=== PATIENT | male | born 1960 | race Caucasian/White ===

== ENCOUNTER 2019-04-01 05:22 | Emergency (ER) | payer OTHER ==
[2019-04-01] MEDS ORDERED: FLEET ENEMA ADULT PR ONE (06:02)
[2019-04-01 07:22] LABS: Absolute Monocytes 0.9 K/uL (0.1-1.3); Absolute Neutrophil 10.5 K/uL (1.8-8.0); Basophils % 0.9 % (0-1.3); Eosinophils % 1.4 % (0-4.4); Hematocrit 49.7 % (39.6-49.0); Lymphocytes % 14.8 % (15.3-44.8); MPV 8.6 fL (7.6-11.3); Monocytes % 6.8 % (3.3-12.3); RBC Red Blood Cell Count 5.29 M/uL (4.33-5.43)
[2019-04-01 07:31] LABS: Albumin 3.7 g/dL (3.4-5.0); Bilirubin Total 0.7 mg/dL (0.2-1.0); Potassium 4.2 mmol/L (3.5-5.1); Protein, Total 7.9 g/dL (6.4-8.2)
--- NOTE | 2019-04-01 08:27 | RAD REPORT ---
EXAM DESCRIPTION: CTAbdomen Pelvis W Contrast - 04/01/2019 8:11 am CLINICAL HISTORY: Abdominal pain. obstruction COMPARISON: No comparisons TECHNIQUE: Biphasic CT imaging of the abdomen and pelvis was performed with 100 ml non-ionic IV cont rast. All CT scans are performed using dose optimization technique as appropriate and may include automated exposure control or mA/KV adjustment according to patient size. FINDINGS: The lung bases are clear. The liver demonstrates mild fatty infiltration. The spleen, pancreas, adrenal glands and kidneys are within normal limits. No bowel obstruction, free air, free fluid or abscess. Mild fecal retention in the colon. Asymmetric wall thickening of the rectum is seen in the pelvis with a left lateral rectal wall measuring up to 9 mm (image 79/97). The appendix is not identified as a discrete structure, however, no secondary find ings of appendicitis are identified. No evidence of significant lymphadenopathy. No suspicious bony findings. IMPRESSION: Mild fecal retention in the colon. Asymmetric wall thickening involving a segment of the rectum in the pelvis is nonspecific but can be seen in malignancy. Followup colonoscopy would be recommended. Fatty liver.
--- NOTE | 2019-04-01 09:32 | ER ---
Nurse's Notes [facility] Name: Padilla Maldonado Jr Age: 58 yrs Sex: Male : 1960 Arrival Date: 04/01/2019 Time: 05:23 Bed 18 Private MD: Diagnosis: Constipation, unspecified Presentation: 04/01 05:25 Presenting complaint: EMS states: "He reported to use that he is constipated. He says jd3 he hasn't had a bowel movement in 5-6 days. he took magnesium citrate last night at 1900, but still no bowel movent.". Transition of care: patient was not received from another setting of care. Onset of symptoms was March 26, 2019. Risk Assessment: Do you want to hurt yourself or someone else? Patient reports no desire to harm self or others. Initial Sepsis Screen: Does the patient meet any 2 criteria? No. Patient's initial sepsis screen is negative. Does the patient have a suspected source of infection? No. Patient's initial sepsis screen is negative. Care prior to arrival: None. 05:25 Method Of Arrival: EMS: [facility] jd3 05:25 Acuity: LONA 4 jd3 Historical: - Allergies: 05:34 [place]; jd3 05:34 PENICILLINS; jd3 - Home Meds: 05:34 metformin 500 mg Oral tab [Active]; ranitidine HCl 150 mg Oral cap [Active]; jd3 montelukast 10 mg oral tab [Active]; lisinopril 10 mg Oral tab [Active]; prednisone 5 mg Oral tab [Active]; - PMHx: 05:34 brain injury; Diabetes - NIDDM; COPD; Hypertension; High Cholesterol; GERD; jd3 Osteoporosis; - PSHx: 05:34 abdominal sx; left hand; jd3 - Immunization history:: Adult Immunizations up to date. - Social history:: Smoking status: Patient uses tobacco products, smokes one-half pack cigarettes per day. - Ebola Screening: : Patient negative for fever greater than or equal to 101.5 degrees Fahrenheit, and additional compatible Ebola Virus Disease symptoms. Screenin:39 Abuse screen: Denies threats or abuse. Nutritional screening: No deficits noted. jd3 Tuberculosis screening: No symptoms or risk factors identified. Fall Risk Ambulatory Aid- None/Bed Rest/Nurse Assist (0 pts). Gait- Normal/Bed Rest/Wheelchair (0 pts) Mental Status- Oriented to own ability (0 pts). Total Deutsch Fall Scale indicates No Risk (0-24 pts). Assessment: 05:36 General: Appears in no apparent distress. uncomfortable, Behavior is calm, cooperative, jd3 appropriate for age. Pain: Complains of pain in back Quality of pain is described as aching. Neuro: Level of Consciousness is awake, alert, obeys commands, Oriented to person, place, time, situation, Appropriate for age. Cardiovascular: Capillary refill < 3 seconds Patient's skin is warm and dry. Respiratory: Airway is patent Respiratory effort is even, unlabored, Respiratory pattern is regular, symmetrical. GI: Abdomen is round Abd is soft and non tender X 4 quads. Reports constipation. : No signs and/or symptoms were reported regarding the genitourinary system. EENT: No signs and/or symptoms were reported regarding the EENT system. Derm: Skin is intact, Skin is dry, Skin is normal, Skin temperature is warm. Musculoskeletal: Circulation, motion, and sensation intact. Range of motion: intact in all extremities. 07:00 General: Appears in no apparent distress. comfortable, Behavior is calm, cooperative. rb1 Pain: Denies pain. Neuro: Level of Consciousness is awake, alert, obeys commands, Oriented to person, place, time, situation. Respiratory: Airway is patent Respiratory effort is even, unlabored, Respiratory pattern is regular, symmetrical. GI: Reports constipation. : No signs and/or symptoms were reported regarding the genitourinary system. Derm: Skin is pink, warm \\T\\ dry. 08:00 Reassessment: Patient appears in no apparent distress at this time. No changes from rb1 previously documented assessment. 08:05 Reassessment: Pt. went to CT. rb1 09:23 Reassessment: Patient appears in no apparent distress at this time. Patient and/or em family updated on plan of care and expected duration. Pain level reassessed. Patient is alert, oriented x 3, equal unlabored respirations, skin warm/dry/pink. no BM. 09:54 Reassessment: pt upset about diagnosis, states "doctors here don't know what they are em doing, they are going to find me on the street. I know doctors who saved my life and they did a colonoscopy and saved my life. I spent all this money and you telling me there is nothing wrong with me." pt agreed to sign discharge papers, will be discharged and take bus home. Vital Signs: 05:34 BP 154 / 94; Pulse 84; Resp 18 S; Temp 98.5(O); Pulse Ox 95% on R/A; Weight 86.18 kg jd3 (R); Height 5 ft. 6 in. (167.64 cm) (R); Pain 0/10; 07:00 BP 130 / 77; Pulse 79; Resp 17; Temp 98.0(O); Pulse Ox 95% on R/A; Pain 0/10; rb1 08:00 BP 129 / 80; Pulse 75; Resp 18; Temp 98.1(O); Pulse Ox 96% on R/A; Pain 0/10; rb1 09:32 BP 118 / 81; Pulse 71; Resp 16; Pulse Ox 96% on R/A; em 05:34 Body Mass Index 30.67 (86.18 kg, 167.64 cm) jd3 ED Course: 05:23 Patient arrived in ED. jd3 05:28 Triage completed. jd3 05:30 Kendall Montana MD is Attending Physician. ps1 05:35 Arm band placed on. jd3 05:39 Patient has correct armband on for positive identification. Bed in low position. Call j light in reach. Side rails up X 1. 05:52 Zack Hodges, RN is Primary Nurse. jd3 06:48 Abdomen Acute Series XRAY In Process Unspecified. EDMS 06:48 Radiology exam delayed due to PT IN RESTROOM. Patient moved to radiology via wheelchair.kw 06:48 X-ray completed. Patient tolerated procedure well. Patient moved back from radiology. kw 07:06 Inserted saline lock: 20 gauge in right antecubital area, using aseptic technique. oe Blood collected. 07:16 Radiology exam delayed due to lab results not completed at this time. (BUN/Creatinine). mw3 08:11 CT completed. Patient tolerated procedure well. Patient moved back from CT. mw3 08:13 CT Abd/Pelvis - W/Contrast In Process Unspecified. EDMS 08:56 Attending Physician role handed off by Kendall Montana MD kdr 08:56 Carlos Henry MD is Attending Physician. kdr 09:00 Report given to JR Saravia. rb1 09:54 No provider procedures requiring assistance completed. IV discontinued, intact, em bleeding controlled, No redness/swelling at site. Pressure dressing applied. Administered Medications: 05:53 Drug: Fleet Enema 133 ml Route: AL; jd3 06:57 Follow up: Response: No change in condition; ]provider notified jd3 Intake: Outcome: 09:32 Discharge ordered by MD. kdr 09:54 Discharged to home ambulatory. em 09:54 Condition: good 09:54 Discharge instructions given to patient, Instructed on discharge instructions, follow up and referral plans. medication usage, Demonstrated understanding of instructions, follow-up care, medications, Prescriptions given X 1. 09:58 Patient left the ED. em Signatures: Dispatcher [employer] EDMS Carlos Henry MD MD kdr Munoz, Edgar, LVN BRUSHER MACHINE em Lynn Paige Rebecca, RN RN rb1 Wai Levine Jonathon RN RN jd3 Kendall Montana MD MD [facility] Tara Parekh mw3 Corrections: (The following items were deleted from the chart) 06:57 06:55 Response: No change in condition jd3 jxavier
--- NOTE | 2019-04-01 09:32 | EDPHYS ---
Physician Documentation [facility] Name: Padilla Maldonado Jr Age: 58 yrs Sex: Male : 1960 Arrival Date: 04/01/2019 Time: 05:23 Bed 18 Private MD: ED Physician Carlos Henry HPI: 04/01 05:58 This 58 yrs old Male presents to ER via EMS with complaints of constipation. ps1 05:58 patient states that he has been constipated for last 5 days. 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 No abdominal pain but cramping. From out of town and homeless. Drove from [place] and now in [place]. No reported pain medications. . Historical: - Allergies: 05:34 [place]; jd3 05:34 PENICILLINS; jd3 - Home Meds: 05:34 metformin 500 mg Oral tab [Active]; ranitidine HCl 150 mg Oral cap [Active]; jd3 montelukast 10 mg oral tab [Active]; lisinopril 10 mg Oral tab [Active]; prednisone 5 mg Oral tab [Active]; - PMHx: 05:34 brain injury; Diabetes - NIDDM; COPD; Hypertension; High Cholesterol; GERD; jd3 Osteoporosis; - PSHx: 05:34 abdominal sx; left hand; jd3 - Immunization history:: Adult Immunizations up to date. - Social history:: Smoking status: Patient uses tobacco products, smokes one-half pack cigarettes per day. - Ebola Screening: : Patient negative for fever greater than or equal to 101.5 degrees Fahrenheit, and additional compatible Ebola Virus Disease symptoms. ROS: 05:58 Constitutional: Negative for fever, chills, and weight loss, Eyes: Negative for injury, ps1 pain, redness, and discharge, ENT: Negative for injury, pain, and discharge, Cardiovascular: Negative for chest pain, palpitations, and edema, Respiratory: Negative for shortness of breath, cough, wheezing, and pleuritic chest pain, Back: Negative for injury and pain, MS/Extremity: Negative for injury and deformity, Skin: Negative for injury, rash, and discoloration. 05:58 Abdomen/GI: Positive for constipation. Exam: 05:58 Constitutional: This is a well developed, well nourished patient who is awake, alert, ps1 and in no acute distress. Head/Face: Normocephalic, atraumatic. Eyes: Pupils equal round and reactive to light, extra-ocular motions intact. Lids and lashes normal. Conjunctiva and sclera are non-icteric and not injected. Chest/axilla: Normal chest wall appearance and motion. Nontender with no deformity. No lesions are appreciated. Cardiovascular: Regular rate and rhythm. No gallops, murmurs, or rubs. Normal PMI, no JVD. No pulse deficits. Respiratory: Lungs have equal breath sounds bilaterally, clear to auscultation and percussion. No rales, rhonchi or wheezes noted. No increased work of breathing, no retractions or nasal flaring. Abdomen/GI: Soft, non-tender, with normal bowel sounds. No distension or tympany. No guarding or rebound. No evidence of tenderness throughout. MS/ Extremity: Pulses equal, no cyanosis. Neurovascular intact. Full, normal range of motion. Neuro: Awake and alert, GCS 15, oriented to person, place, time, and situation. Cranial nerves II-XII grossly intact. Sensory grossly intact. Psych: Awake, alert, with orientation to person, place and time. Behavior, mood, and affect are within normal limits. Vital Signs: 05:34 BP 154 / 94; Pulse 84; Resp 18 S; Temp 98.5(O); Pulse Ox 95% on R/A; Weight 86.18 kg jd3 (R); Height 5 ft. 6 in. (167.64 cm) (R); Pain 0/10; 07:00 BP 130 / 77; Pulse 79; Resp 17; Temp 98.0(O); Pulse Ox 95% on R/A; Pain 0/10; rb1 08:00 BP 129 / 80; Pulse 75; Resp 18; Temp 98.1(O); Pulse Ox 96% on R/A; Pain 0/10; rb1 09:32 BP 118 / 81; Pulse 71; Resp 16; Pulse Ox 96% on R/A; em 05:34 Body Mass Index 30.67 (86.18 kg, 167.64 cm) jd3 MDM: 06:12 Patient medically screened. ps1 09:39 Data reviewed: vital signs, nurses notes, lab test result(s), radiologic studies. kdr Counseling: I had a detailed discussion with the patient and/or guardian regarding: the historical points, exam findings, and any diagnostic results supporting the discharge/admit diagnosis, lab results, radiology results. Special discussion: Based on the patient's Hx, exam, and Dx evaluation, there is no indication for emergent surgery or inpatient Tx. It is understood by the patient/guardian that if the Sx's persist or worsen they need to return immediately for re-evaluation. I discussed with the patient/guardian in detail that at this point there is no indication for admission to the hospital. It is understood, however, that if the symptoms persist or worsen the patient needs to return immediately for re-evaluation. 04/01 06:48 Order name: CBC with Diff; [facility] 08[facility] 04/01 06:48 Order name: CMP; Complete Time: 08:52 [facility] 04/01 05:50 Order name: Abdomen Acute Series XRAY ps1 04/01 06:48 Order name: Lactate; Complete Time: 08:52 [facility] 04/01 06:48 Order name: CT Abd/Pelvis - W/Contrast; Complete Time: 08:52 [facility] 04/01 06:48 Order name: Lipase; Complete Time: 08:52 [facility] 04/01 06:55 Order name: IV; Complete Time: 08:09 j Administered Medications: 05:53 Drug: Fleet Enema 133 ml Route: [place]; jd3 06:57 Follow up: Response: No change in condition; ]provider notified jd3 Disposition: 04/01/19 09:32 Discharged to Home. Impression: Constipation, unspecified. - Condition is Stable. - Discharge Instructions: Constipation, Adult, [id number]. - Prescriptions for Miralax 17 gram/dose Oral - take 1 packet by ORAL route once daily dilute powder in 8 ounces of water or juice; 1 box. - Medication Reconciliation Form, Thank You Letter form. - Follow up: Private Physician; When: 2 - 3 days; Reason: If symptoms return, Further diagnostic work-up, Recheck today's complaints, Continuance of care, Re-evaluation by your physician. - Problem is an ongoing problem. - Symptoms are unchanged. Signatures: Dispatcher [employer] Carlos Kan MD MD kdr Munoz, Edgar, CIGAR WRAPPER CIGAR WRAPPER Zack Garcia RN RN jd3 Kendall Montana MD MD ps1 Corrections: (The following items were deleted from the chart) 09:58 09:32 04/01/2019 09:32 Discharged to Home. Impression: Constipation, unspecified. em Condition is Stable. Forms are Medication Reconciliation Form, Thank You Letter, Antibiotic Education, Prescription Opioid Use. Follow up: Private Physician; When: 2 - 3 days; Reason: If symptoms return, Further diagnostic work-up, Recheck today's complaints, Continuance of care, Re-evaluation by your physician. Problem is an ongoing problem. Symptoms are unchanged. kdr
--- NOTE | 2019-04-01 11:30 | RAD REPORT ---
EXAM DESCRIPTION: RAD - Abdomen Acute Series - 04/01/2019 6:47 am CLINICAL HISTORY: CONSTIPATION COMPARISON: Abdomen Pelvis W Contrast dated 04/01/2019 FINDINGS: The lungs are grossly clear. No subdiaphragmatic free air seen. No bowel obstruction pattern. No pathologic calcifications seen. IMPRESSION: No acute process identified.
== END 2019-04-01 09:58 | disposition home or self-care (01) ==
LOC: ER 05:22
DX: K59.00 Constipation, unspecified (principal); I10 Essential (primary) hypertension; E11.9 Type 2 diabetes mellitus without complications; J44.9 Chronic obstructive pulmonary disease, unspecified; E78.00 Pure hypercholesterolemia, unspecified; F17.210 Nicotine dependence, cigarettes, uncomplicated; Z88.0 Allergy status to penicillin; Z91.018 Allergy to other foods
CPT/HCPCS: 36415; 74022; 74177; 80053; 83605; 83690; 85025; 99284; Q9967

== ENCOUNTER 2020-11-04 00:29 | Emergency (ER) | payer OTHER ==
--- OUTSIDE RECORDS SUMMARY | 2020-11-04 00:31 | XMS REPORT | Continuity of Care Document ---
:1960 Author Organization [facility] t Address [address] [place] [address] Care Team Providers Name Role Phone Marilyn Kim Attending Clinician Problems This patient has no known problems. Allergies, Adverse Reactions, Alerts This patient has no known allergies or adverse reactions. Medications This patient has no known medications. Procedures This patient has no known procedures. Encounters Start End Encounter Admission Attending Care Care Encounter Source Date/Time Date/Time Type Type Clinicians Facility Department ID 2020-04-16 2020-04-16 Emergency [place] [facility] [id number] 19:11:00 19:11:00 2020-01-22 2020-01-22 Emergency LEXX Rodriguez [id number] 10:18:24 11:03:00 Irma Moran [id number] [place] [id number] [place] [id number] Results This patient has no known results.
[2020-11-04 01:25] LABS: Basophils % 1.1 % (0-1.3); Hematocrit 47.3 % (39.6-49.0); Lymphocytes % 13.9 % (15.3-44.8); Protime INR 0.97; RBC Red Blood Cell Count 5.05 M/uL (4.33-5.43)
[2020-11-04 01:36] LABS: ALT/SGPT 42 U/L (12-78); AST/SGOT 44 U/L (15-37); Albumin 3.8 g/dL (3.4-5.0); Alkaline Phosphatase 108 U/L (45-117); BUN Blood Urea Nitrogen 18 mg/dL (7-18); Bicarbonate 23 mmol/L (21-32); Bilirubin Direct 0.2 mg/dL (0-0.2); Bilirubin Total 0.7 mg/dL (0.2-1.0); Glucose Level 141 mg/dL (74-106); Magnesium 2.1 mg/dL (1.8-2.4); NT PRO-BNP 128 pg/mL (<125); Potassium 3.7 mmol/L (3.5-5.1); Protein, Total 7.6 g/dL (6.4-8.2); Sodium Level 138 mmol/L (136-145); Troponin (Emerg Dept Use Only) < 0.02 ng/mL (0.0-0.045)
[2020-11-04 03:03] LABS: Barbiturates NEGATIVE (NEGATIVE); Benzodiazepines NEGATIVE (NEGATIVE); Cocaine NEGATIVE (NEGATIVE); METHAMPHETAM POSITIVE (NEGATIVE); Methadone NEGATIVE (NEGATIVE); Opiates NEGATIVE (NEGATIVE); Phencyclidine NEGATIVE (NEGATIVE); THC Cannibis NEGATIVE (NEGATIVE)
--- NOTE | 2020-11-04 03:30 | EDPHYS ---
Physician Documentation [facility] Name: Padilla Maldonado Jr Age: 60 yrs Sex: Male : 1960 Arrival Date: 11/04/2020 Time: 00:41 Bed 8 Private MD: ED Physician Devante Pace HPI: 11/04 03:22 This 60 yrs old Male presents to ER via EMS with complaints of chest pain tw4 after meth use. 03:22 The patient or guardian reports chest pain that is located primarily in the anterior tw4 chest wall. Onset: today. The pain does not radiate. Associated signs and symptoms: The patient has no apparent associated signs or symptoms. The chest pain is described as dull. Severity of pain: At its worst the pain was moderate in the emergency department the pain has resolved. The patient has not experienced similar symptoms in the past. Historical: - Allergies: 00:46 [place]; mg2 00:46 PENICILLINS; mg2 - PMHx: 00:46 brain injury; COPD; Diabetes - NIDDM; GERD; High Cholesterol; Hypertension; mg2 Osteoporosis; - Immunization history:: Flu vaccine status is unknown. - Social history:: Smoking status: Patient reports the use of cigarette tobacco products, Patient uses street drugs, Methamphetamine (Meth). ROS: 03:22 Constitutional: Negative for fever, chills, and weight loss, Cardiovascular: Negative tw4 for chest pain, palpitations, and edema, Respiratory: Negative for shortness of breath, cough, wheezing, and pleuritic chest pain, Abdomen/GI: Negative for abdominal pain, nausea, vomiting, diarrhea, and constipation, Back: Negative for injury and pain, MS/Extremity: Negative for injury and deformity, Skin: Negative for injury, rash, and discoloration, Neuro: Negative for headache, weakness, numbness, tingling, and seizure. Exam: 03:22 Constitutional: This is a well developed, well nourished patient who is awake, alert, tw4 and in no acute distress. Head/Face: Normocephalic, atraumatic. Chest/axilla: Normal chest wall appearance and motion. Nontender with no deformity. No lesions are appreciated. Cardiovascular: Regular rate and rhythm with a normal S1 and S2. No gallops, murmurs, or rubs. Normal PMI, no JVD. No pulse deficits. Respiratory: Lungs have equal breath sounds bilaterally, clear to auscultation and percussion. No rales, rhonchi or wheezes noted. No increased work of breathing, no retractions or nasal flaring. Abdomen/GI: Soft, non-tender, with normal bowel sounds. No distension or tympany. No guarding or rebound. No evidence of tenderness throughout. Back: No spinal tenderness. No costovertebral tenderness. Full range of motion. MS/ Extremity: Pulses equal, no cyanosis. Neurovascular intact. Full, normal range of motion. Neuro: Awake and alert, GCS 15, oriented to person, place, time, and situation. Cranial nerves II-XII grossly intact. Motor strength 5/5 in all extremities. Sensory grossly intact. Cerebellar exam normal. Normal gait. Psych: Awake, alert, with orientation to person, place and time. Behavior, mood, and affect are within normal limits. Vital Signs: 00:42 BP 158 / 102; Pulse 102; Resp 18; Pulse Ox 96% on R/A; Height 5 ft. 1 in. (154.94 cm); mg2 02:00 BP 138 / 81; Pulse 95; Resp 18; Temp 98.5; Pulse Ox 98% on R/A; mg2 03:30 BP 130 / 80; Pulse 90; Resp 18; Temp 98; Pulse Ox 100% on R/A; mg2 04:25 BP 128 / 85; Pulse 89; Resp 18; Temp 98; Pulse Ox 100% on R/A; mg2 MDM: 00:41 Patient medically screened. tw4 03:22 Differential diagnosis: coronary artery disease gastroesophageal reflux disease (GERD), tw4 pulmonary embolus, stable angina, thoracic aortic disection. Data reviewed: vital signs, nurses notes. Data interpreted: Pulse oximetry: Interpretation: normal. Counseling: I had a detailed discussion with the patient and/or guardian regarding: the historical points, exam findings, and any diagnostic results supporting the discharge/admit diagnosis, lab results. Special discussion: I discussed with the patient/guardian in detail that at this point there is no indication for admission to the hospital. It is understood, however, that if the symptoms persist or worsen the patient needs to return immediately for re-evaluation. 11/04 00:42 Order name: Basic Metabolic Panel; Complete Time: 02:01 mg2 11/04 02:01 Interpretation: Normal except: GLUC 141; GFR 70. tw4 11/04 00:42 Order name: CBC with Diff; Complete Time: 02:01 mg2 11/04 02:01 Interpretation: Normal except: MARLIN% 75.2; LYM% 13.9. tw4 11/04 00:42 Order name: LFT's; Complete Time: 02:01 mg2 11/04 02:01 Interpretation: Normal except: AST 44; GLOB 3.8; A/G 1.0. tw4 11/04 00:42 Order name: Magnesium; Complete Time: 02:01 mg2 11/04 02:02 Interpretation: Normal except: MG 2.1. tw4 11/04 00:42 Order name: NT PRO-BNP; Complete Time: 02:01 mg2 11/04 02:02 Interpretation: Within normal limits: NT PRO-BNP 128. tw4 11/04 00:42 Order name: PT-INR; Complete Time: 02:01 mg2 11/04 00:42 Order name: Troponin (emerg Dept Use Only); Complete Time: 02:01 mg2 11/04 02:02 Interpretation: Within normal limits: TROPED < 0.02. tw4 11/04 00:42 Order name: XRAY Chest (1 view) [facility] 11/04 00:42 Order name: EKG; Complete Time: 00:43 mg2 11/04 00:42 Order name: Cardiac monitoring; Complete Time: 02:36 mg2 11/04 01:51 Order name: UDS; Complete Time: 03:22 tw4 11/04 03:22 Interpretation: Normal except: METHAMPHETAMINE POSITIVE. tw4 11/04 02:06 Order name: Troponin I tw4 11/04 02:38 Order name: Urine Dipstick--Ancillary (enter results) 2 11/04 00:42 Order name: EKG - Nurse/Tech; Complete Time: 02:36 mg2 11/04 00:42 Order name: IV Saline Lock; Complete Time: 02:36 mg2 11/04 00:42 Order name: Labs collected and sent; Complete Time: 02:36 mg2 11/04 00:42 Order name: O2 Per Protocol; Complete Time: 02:37 mg2 11/04 00:42 Order name: O2 Sat Monitoring; Complete Time: 02:37 mg2 EC:30 Rate is 101 beats/min. Rhythm is regular. QRS [place] is Normal. [place] interval is normal. tw4 QRS interval is normal. QT interval is normal. No Q waves. T waves are Normal. No ST changes noted. Clinical impression: Sinus tachycardia. Interpreted by me. Reviewed by me. Administered Medications: No medications were administered Disposition: 11/04/20 03:29 Discharged to Home. Impression: Adverse effect of amphetamines. - Condition is Stable. - Discharge Instructions: Nonspecific Chest Pain, Stimulant Use Disorder-Methamphetamines. - Medication Reconciliation Form, Thank You Letter, Antibiotic Education, Prescription Opioid Use form. - Follow up: Private Physician; When: Upon discharge from the Emergency Department; Reason: Recheck today's complaints, Continuance of care, Re-evaluation by your physician. - Problem is new. - Symptoms have improved. Signatures: Dispatcher [employer] [facility] Devante Pace MD MD tw4 Hollis Louise RN RN mg2 Corrections: (The following items were deleted from the chart) 04:12 00:43 URINE DRUG SCREEN+CHEM UR.LAB.BRZ ordered. [facility] 04:32 03:29 11/04/2020 03:29 Discharged to Home. Impression: Adverse effect of amphetamines. mg2 Condition is Stable. Forms are Medication Reconciliation Form, Thank You Letter, Antibiotic Education, Prescription Opioid Use. Follow up: Private Physician; When: Upon discharge from the Emergency Department; Reason: Recheck today's complaints, Continuance of care, Re-evaluation by your physician. Problem is new. Symptoms have improved. tw4
--- NOTE | 2020-11-04 03:30 | ER ---
Nurse's Notes [facility] Name: Padilla Maldonado Jr Age: 60 yrs Sex: Male : 1960 Arrival Date: 11/04/2020 Time: 00:41 Bed 8 Private MD: Diagnosis: Adverse effect of amphetamines Presentation: 11/04 00:42 Chief complaint: EMS states: he was staying in [address], somebody called us mg2 saying that he looks like he is having trouble breathing and with chest pain. he claimed to smoke a quarter oz of amphetamines 30 min ago. Coronavirus screen: Client denies travel out of the [place] in the last 14 days. At this time, the client does not indicate any symptoms associated with coronavirus-19. Ebola Screen: No symptoms or risks identified at this time. Initial Sepsis Screen: Does the patient meet any 2 criteria? No. Patient's initial sepsis screen is negative. Does the patient have a suspected source of infection? No. Patient's initial sepsis screen is negative. Risk Assessment: Do you want to hurt yourself or someone else? Patient reports no desire to harm self or others. Onset of symptoms was November 04, 2020. 00:42 Method Of Arrival: EMS: [facility] mg2 00:42 Acuity: LONA 3 mg2 Historical: - Allergies: 00:46 [place]; mg2 00:46 PENICILLINS; mg2 - PMHx: 00:46 brain injury; COPD; Diabetes - NIDDM; GERD; High Cholesterol; Hypertension; mg2 Osteoporosis; - Immunization history:: Flu vaccine status is unknown. - Social history:: Smoking status: Patient reports the use of cigarette tobacco products, Patient uses street drugs, Methamphetamine (Meth). Screenin:00 Abuse screen: Denies threats or abuse. Denies injuries from another. Nutritional mg2 screening: No deficits noted. Tuberculosis screening: No symptoms or risk factors identified. Fall Risk IV access (20 points). Assessment: 02:00 General: Appears in no apparent distress. Behavior is restless. Pain: Complains of pain mg2 in chest. Neuro: Level of Consciousness is awake, alert, obeys commands, Oriented to person, place, time, situation. Cardiovascular: Capillary refill < 3 seconds Patient's skin is warm and dry. Respiratory: Airway is patent Respiratory effort is even, unlabored, Respiratory pattern is regular, symmetrical. GI: No signs and/or symptoms were reported involving the gastrointestinal system. : No signs and/or symptoms were reported regarding the genitourinary system. EENT: No signs and/or symptoms were reported regarding the EENT system. Derm: Skin is intact, is healthy with good turgor, Skin is pink, warm \T\ dry. normal. Musculoskeletal: Circulation, motion, and sensation intact. Capillary refill < 3 seconds. Vital Signs: 00:42 BP 158 / 102; Pulse 102; Resp 18; Pulse Ox 96% on R/A; Height 5 ft. 1 in. (154.94 cm); mg2 02:00 BP 138 / 81; Pulse 95; Resp 18; Temp 98.5; Pulse Ox 98% on R/A; mg2 03:30 BP 130 / 80; Pulse 90; Resp 18; Temp 98; Pulse Ox 100% on R/A; mg2 04:25 BP 128 / 85; Pulse 89; Resp 18; Temp 98; Pulse Ox 100% on R/A; mg2 ED Course: 00:41 Patient arrived in ED. mg2 00:41 Hollis Louise, WES is Primary Nurse. mg2 00:41 Devante Pace MD is Attending Physician. tw4 00:44 Triage completed. mg2 00:44 Arm band placed on. mg2 01:11 XRAY Chest (1 view) In Process Unspecified. EDMS 02:30 Inserted saline lock: 20 gauge in right antecubital area, using aseptic technique. mg2 Blood collected. 04:29 Patient has correct armband on for positive identification. mg2 04:29 No provider procedures requiring assistance completed. mg2 04:30 IV discontinued, intact, bleeding controlled, No redness/swelling at site. Pressure mg2 dressing applied. Administered Medications: No medications were administered Outcome: 03:29 Discharge ordered by . tw4 04:30 Discharged to home ambulatory. mg2 04:30 Condition: stable 04:30 Discharge instructions given to patient, Instructed on discharge instructions, follow up and referral plans. Demonstrated understanding of instructions, follow-up care. 04:32 Patient left the ED. mg2 Signatures: Dispatcher [employer] EDOK Devante Pace MD MD tw4 Hollis Louise, RN RN mg2 Corrections: (The following items were deleted from the chart) 02:37 02:00 BP 138 / 81; Pulse 95bpm; Resp 18bpm; Pulse Ox 98% RA; mg2 mg2
[2020-11-04 05:05] VITALS: TEMP 98; O2SAT 100
[2020-11-04 05:07] VITALS: BP 128/85
[2020-11-04 06:12] LABS: Urine Blood 2+ (NEG); Urine Glucose NEGATIVE (NEG); Urine Protein NEGATIVE (NEG); Urine pH 7.5 (5.0-7.0)
--- NOTE | 2020-11-04 08:35 | RAD REPORT ---
EXAM DESCRIPTION: RAD - Chest Single View - 11/04/2020 1:11 am CLINICAL HISTORY: CHEST PAIN Chest pain. COMPARISON: Abdomen Acute Series dated 04/01/2019 FINDINGS: Portable technique limits examination quality. The lungs are grossly clear. The heart is normal in size. No displaced fractures. IMPRESSION: No acute intrathoracic process suspected.
--- NOTE | 2020-11-04 10:28 | EKG ---
Test Date: 2020-11-04 Test Time: 00:42:15 Manager Construction: RACH MEASUREMENT RESULTS: Intervals: Rate: 101 MS: 134 QRSD: 84 QT: 382 QTc: 495 [place]: P: 30 MS: 134 QRS: 78 T: 66 INTERPRETIVE STATEMENTS: Sinus tachycardia Otherwise normal ECG No previous ECG available for comparison Electronically Signed On 11-04-20 10:27:45 [employer]AN [employer]ESS DE[employer]MENT CONSULTANT by Jonathan Goldstein
== END 2020-11-04 04:32 | disposition home or self-care (01) ==
LOC: ER 00:29
DX: R07.89 Other chest pain (principal); T43.625A Adverse effect of amphetamines, initial encounter; I10 Essential (primary) hypertension; Z72.0 Tobacco use; Z88.0 Allergy status to penicillin; Z91.018 Allergy to other foods
CPT/HCPCS: 36415; 71045; 80048; 80076; 80307; 81003; 83735; 83880; 84484; 85025; 85610; 93005; 99284

== ENCOUNTER 2021-08-01 16:24 | Emergency (ER) | payer OTHER ==
--- NOTE | 2021-08-01 18:43 | ER ---
Nurse's Notes [facility] Name: Padilla Maldonado Jr Age: 60 yrs Sex: Male : 1960 Arrival Date: 08/01/2021 Time: 16:27 Bed 11 [facility] MD: Diagnosis: Presentation: 08/01 16:44 Chief complaint: Patient states: L ear pain , swelling, and decreased hearing for 2 ll1 months. Pain radiates into L neck. Concerned for possible CA mets, had esophageal CA in 1995. Coronavirus screen: Vaccine status: Patient reports being unvaccinated. Client denies travel out of the [place] in the last 14 days. At this time, the client does not indicate any symptoms associated with coronavirus-19. Ebola Screen: Patient denies travel to an Ebola-affected area in the 21 days before illness onset. Initial Sepsis Screen: Does the patient meet any 2 criteria? No. Patient's initial sepsis screen is negative. Does the patient have a suspected source of infection? Yes: Other: ear pain. Risk Assessment: Do you want to hurt yourself or someone else? Patient reports no desire to harm self or others. Onset of symptoms was June 01, 2021. 16:44 Method Of Arrival: Ambulatory ll1 16:44 Acuity: LONA 3 ll1 Historical: - Allergies: 16:47 [place]; ll1 16:47 PENICILLINS; ll1 - PMHx: 16:47 brain injury; COPD; Diabetes - NIDDM; GERD; High Cholesterol; Hypertension; ll1 Osteoporosis; trigeminal nerve problem; - PSHx: 16:47 toenails removed; ll1 - Immunization history:: Client reports receiving the 2nd dose of the Covid vaccine. - Social history:: Smoking status: Patient reports the use of cigarette tobacco products, smokes one-half pack cigarettes per day. Screenin:28 Abuse screen: Denies threats or abuse. Nutritional screening: No deficits noted. vg1 Tuberculosis screening: No symptoms or risk factors identified. Fall Risk No fall in past 12 months (0 pts). No secondary diagnosis (0 pts). Ambulatory Aid- None/Bed Rest/Nurse Assist (0 pts). Gait- Normal/Bed Rest/Wheelchair (0 pts) Mental Status- Oriented to own ability (0 pts). Total Deutsch Fall Scale indicates No Risk (0-24 pts). Assessment: 18:00 General: Appears in no apparent distress. comfortable, Behavior is calm, cooperative. vg1 Pain: Complains of pain in left ear and left side of neck Pain currently is 7 out of 10 on a pain scale. Quality of pain is described as aching, pressure, Pain began approximately two months Is continuous. Neuro: Level of Consciousness is awake, alert, obeys commands, confused, Oriented to person, place, time, situation. Cardiovascular: Patient's skin is warm and dry. Respiratory: Airway is patent Respiratory effort is even, unlabored. GI: Patient currently denies nausea, vomiting. : Reports burning with urination, odor. EENT: Ear canal clear on left ear. Derm: Skin is intact, is healthy with good turgor. Musculoskeletal: Circulation, motion, and sensation intact. 18:40 Reassessment: pt stated 'where are the doors to leave, I havnt seen a doctor and feel vg1 like no one wants to help me' Pt was asked to go back into room and that a provider would be in shortly to provide care for pt, pt refused to go back into room. Pt stated 'open the doors and let me out now'. Pt left ED. Charge Nurse notified. Vital Signs: 16:44 BP 120 / 70; Pulse 88; Resp 18; Temp 97.6; Pulse Ox 100% ; Weight 70.31 kg; Height 5 ll1 ft. 6 in. (167.64 cm); Pain 7/10; 18:28 BP 124 / 83; Pulse 80; Resp 16; Pulse Ox 98% ; vg1 16:44 Body Mass Index 25.02 (70.31 kg, 167.64 cm) ll1 ED Course: 16:27 Patient arrived in ED. jm9 16:47 Triage completed. ll1 16:48 Arm band placed on. ll1 17:47 Patient placed in an exam room, on a stretcher. iw 17:56 Annette Shaw, RN is Primary Nurse. vg1 18:28 Patient has correct armband on for positive identification. Bed in low position. Call vg1 light in reach. 18:42 No provider procedures requiring assistance completed. Patient did not have IV access vg1 during this emergency room visit. Administered Medications: No medications were administered Outcome: 18:43 Patient left the ED. vg1 Signatures: Annalisa Salvador RN RN joanne Shaw, Annette RN RN vg1 bAbe Pearson RN RN 1 Courtney Ivan 9
[2021-08-01 18:47] VITALS: TEMP 97.6
[2021-08-01 18:48] VITALS: BP 124/83; O2SAT 98
== END 2021-08-01 18:43 | disposition left against medical advice (07) ==
LOC: ER 16:24
DX: Z53.21 Procedure and treatment not carried out due to patient leaving prior to being seen by health care provider (principal)
CPT/HCPCS: 99281

== ENCOUNTER 2021-10-08 08:46 | Emergency (ER) | payer OTHER ==
--- OUTSIDE RECORDS SUMMARY | 2021-10-08 08:49 | XMS REPORT | Continuity of Care Document ---
:1960 Author Organization [facility] t Address [address] [place] [address] Care Team Providers Name Role Phone NO Primary Care Physician Unavailable MAXX Attending Clinician Unavailable WHITNEY Attending Clinician Unavailable Marilyn Kim Attending Clinician Marilyn BENJAMIN Attending Clinician Unavailable Payers Payer Name Policy Type Policy Number Effective Date Expiration Date S [facility] [id number] 2019 00:00:00 Problems Condition Condition Condition Status Onset Resolution Last Treating Co mments Source Name Details Category Date Date Treatment Clinician Date Cellulitis Problem Active [facility] Israel Cody - Patient [facility] Allergies, Adverse Reactions, Alerts Allergy Allergy Status Severity Reaction(s) Onset Inactive Treating Comm ents Source Name Type Date Date Clinician [facility] [employer]UG Active Rash Univers IN [facility] 01-21 ity of 00:00: [place] [id number] [facility] Social History Social Habit Start Date Stop Date Quantity Comments Source Sex Assigned At [birth year] Male [facility] ukes - 00:00:00 00:00:00 Patients [facility] Medications This patient has no known medications. Vital Signs Vital Name Observation Time Observation Value Comments Source BMI (Body Mass 2021-01-08 09:24:00 27.3 kg/m2 [facility] - Index) Patients [facility] Oxygen saturation by 2021-01-08 09:24:00 99 /min [facility] - Pulse oximetry Patients [facility] Weight 2021-01-08 09:24:00 169 [lb_av] [facility] Procedures This patient has no known procedures. Plan of Care Planned Activity Planned Date Details Comments Source Instructions Cellulitis [facility] Encounters Start End Encounter Admission Attending Care Care Encounter Source Date/Time Date/Time Type Type Clinicians Facility Department ID 2021-01-08 2021-01-08 Departed [facility] [id number] [facility]. 09:31:00 10:47:00 Emergency Patients 27 [place] - Room [facility] 2020-12-17 2020-12-[address] [facility] ERT [id number] Univers 11:33:00 11:33:00 PAUL [facility] 2020-04-16 2020-04-17 Emergency E [facility] [id number] [facility] 19:11:00 02:09:00 NIKUNJED SUKHJINDER 2020-01-22 2020-01-22 Emergency [facility] [id number] 10:18:24 11:03:00 Irma Moran [id number] [place] [id number] [place] [id number] 2020-01-22 2020-01-22 Emergency X [facility] ERT [id number] Univers 10:18:24 10:18:24 IRMA [facility] Results This patient has no known results.
[2021-10-08 09:09] LABS: Urine Blood 1+ (Negative); Urine Glucose Negative (Negative); Urine Protein Negative (Negative); Urine pH 5.5 (5.0-7.0)
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
[2021-10-08 09:44] LABS: Urine Bacteria 20-50 /HPF (NONE SEEN); Urine Mucus 1+ /HPF (NONE SEEN); Urine RBC <5 /HPF (NONE SEEN)
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
[2021-10-08] MEDS ORDERED: CIPROFLOXACIN HCL 500 MG TAB ONE (10:25)
[2021-10-08 10:42] VITALS: TEMP 97.6
[2021-10-08 10:43] VITALS: BP 128/90; O2SAT 100
== END 2021-10-08 10:35 | disposition home or self-care (01) ==
LOC: ER 08:46
DX: N39.0 Urinary tract infection, site not specified (principal); I10 Essential (primary) hypertension; F17.210 Nicotine dependence, cigarettes, uncomplicated; Z88.0 Allergy status to penicillin; Z91.018 Allergy to other foods
CPT/HCPCS: 70450; 72125; 81003; 81015; 87077; 87086; 87088; 87186; 99284

== ENCOUNTER 2022-01-02 15:27 | Emergency (ER) | payer OTHER ==
--- OUTSIDE RECORDS SUMMARY | 2022-01-02 15:29 | XMS REPORT | Continuity of Care Document ---
:1960 Author Organization [facility] t Address [address] [place] [address] Care Team Providers Name Role Phone NO Primary Care Physician Unavailable Team, Health Maintenance Attending Clinician Unavailable RADIOLOGY Attending Clinician Unavailable MAXX Attending Clinician Unavailable WHITNEY Attending Clinician Unavailable Marilyn Kim Attending Clinician Marilyn BENJAMIN Attending Clinician Unavailable Payers Payer Name Policy Type Policy Number Effective Date Expiration Date S ource Problems Condition Condition Condition Status Onset Resolution Last Treating Co mments Source Name Details Category Date Date Treatment Clinician Date Cellulitis Problem Active [facility] No known No known Disease Unive rs active active ity of problems problems [facility] Allergies, Adverse Reactions, Alerts Allergy Allergy Status Severity Reaction(s) Onset Inactive Treating Comm ents Source Name Type Date Date Clinician Penicill Propensi Active Rash 2020-0 Univer s in ty to 3-23 ity of adverse 00:00: [place] reaction 00 [facility] PENICILL DRUG Active Rash 2020-0 Univers IN INGREDI 3-23 ity of 00:00: [place] 00 [facility] No Known DA Active [facility] Social History Social Habit Start Date Stop Date Quantity Comments Source Sex Assigned At [birth year] [facility] 00:00:00 00:00:00 [facility] Smoking Status Start Date Stop Date Source Unknown if ever smoked [facility] Medications Ordered Filled Start Stop Current Ordering Indication Dosage Frequency Signature Comments Components Source Medication Medication Date Date Medication? Clinician (SIG) Name Name No known No Univers medications 2-16 ity of 12:51: [address] Vital Signs Vital Name Observation Time Observation Value Comments Source Oxygen saturation by 2021-01-08 09:24:00 99 /min [facility] - Pulse oximetry Patients [facility] Weight 2021-01-08 09:24:00 169 [lb_av] [facility] - Patients [facility] BMI (Body Mass 2021-01-08 09:24:00 27.3 kg/m2 [facility] - Index) Patients [facility] Procedures This patient has no known procedures. Plan of Care Planned Activity Planned Date Details Comments Source Instructions Cellulitis [facility] Encounters Start End Encounter Admission Attending Care Care Encounter Source Date/Time Date/Time Type Type Clinicians Facility Department ID 2021-01-08 Inpatient [facility] [id number] [facility] St 09:00:00 [facility] 2021-12-18 2021-12-18 Telephone Team, [facility] HONEY [id number] Univers 00:00:00 00:00:00 [facility] [id number] it y [facility] [id number] [place] [id number] [place] [id number] [place] 2021-11-04 2021-11-04 Outpatient R [facility] [id number] Univers 00:00:00 00:00:00 [id number] ity [facility] 2021-11-04 2021-11-04 Outpatient R [facility] [id number] Univers 00:00:00 00:00:00 ity [facility] 2021-10-27 2021-10-27 Outpatient R [facility] [id number] Univers 00:00:00 00:00:00 ity [facility] 2021-01-08 2021-01-[address] [facility] [id number] [facility] [address] 09:31:00 10:47:00 Emergency Patients 27 [place] - Room [facility] 2020-12-17 2020-12-17 [facility] [id number] Univers 11:33:00 11:33:00 PAUL [facility] 2020-04-16 2020-04-17 Emergency E HEIDIVA-A BL MHBL [id number] MHBL 19:11:00 02:09:00 SUKHJINDER ACUNA 2020-01-22 2020-01-[address] [facility] [id number] 10:18:24 11:03:00 Irma Moran [id number] [place] [id number] [place] [id number] 2020-01-22 2020-01-22 Emergency X [facility] ERT [id number] Univers 10:18:24 10:18:24 IRMA [facility] 2008-02-02 2008-02-02 Outpatient [facility] [id number] Univers 00:00:00 00:00:00 [id number] [facility] 2007-12-01 2007-12-01 Outpatient [facility] [id number] Univers 00:00:00 14:55:20 3 [facility] 2007-12-01 2007-12-01 Outpatient [facility] [id number] Univers 00:00:00 00:00:00 [id number] [facility] Results Test Description Test Time Test Comments Results Result Comments Source HEMOGLOBIN A1c 2021-10-16 03:39:30 Test Item Value Reference Range Interpretation Comme nts HEMOGLOBIN A1c (test code = 6.6 % 4.2-5.6 H [employer] 76029) GUIDELINES FOR HGB A1C: PREDIABETES/INC REASED RISK . . . . . . . 5.7-6.4% DIAGNOSIS OF DIABETES . . . . . . . . . >=6.5% WITH CONFIRMATION OR APPROPRIATE SYMPTOMS NOTE: ASSAY MA Y BE AFFECTED BY HEMOGLOBINOPATH IES (SICKLE CELL ANEMIA, S-C DIS EASE, OTHERS) OR ARTIFICIALLY LO WERED BY DECREASED RED CELL SURVIV AL (HEMOLYTIC ANEMIAS, BLOOD LOSS, ETC.). CONSIDER ALTERNATE TESTI NG OR LABORATORY CONSULTATION. UNLESS OTHERWISE INDICATED, ALL TESTING PERFORMED [facility] [employer] [address] [place] [id number] LABORATORY DIRE CTOR: EUGENIO PEREZ M.D. CLIA NUMBER [id number] [employer] ACCREDITATION N O. [id number]
[2022-01-02] MEDS ORDERED: WATER FOR INJ,STERILE 10 ML ONE (15:38)
[2022-01-02] MEDS ORDERED: ZIPRASIDONE MESYLA 20 MG/VIAL IM ONE (15:38)
[2022-01-02] MEDS ORDERED: LORazepam 2 MG/ML VIAL ONE (15:38)
[2022-01-02] MEDS ORDERED: THIAMINE 200 MG/2 ML INJ ONE (16:00)
[2022-01-02] MEDS ORDERED: NA CHLORIDE 0.9% 1,000 ML ONE (16:00)
[2022-01-02 16:01] LABS: Absolute Lymphocytes (CBC) 0.9 K/uL (0.7-4.9); Lymphocytes % 8.6 % (15.3-44.8); MPV 7.5 fL (7.6-11.3); RBC Red Blood Cell Count 4.86 M/uL (4.33-5.43)
[2022-01-02 16:13] LABS: Protime INR 1.03
[2022-01-02 16:27] LABS: ALT/SGPT 69 U/L (12-78); AST/SGOT 82 U/L (15-37); Albumin 4.1 g/dL (3.4-5.0); Alkaline Phosphatase 107 U/L (45-117); BUN Blood Urea Nitrogen 38 mg/dL (7-18); Bicarbonate 25 mmol/L (21-32); Bilirubin Direct 0.3 mg/dL (0-0.2); Bilirubin Total 1.1 mg/dL (0.2-1.0); Glucose Level 121 mg/dL (74-106); Potassium 3.2 mmol/L (3.5-5.1); Protein, Total 8.1 g/dL (6.4-8.2); Sodium Level 142 mmol/L (136-145)
[2022-01-02] MEDS ORDERED: D5.45NS W/KCL 20MEQ 1,000 ML IV ONE (19:34)
--- NOTE | 2022-01-03 07:57 | EDPHYS ---
Physician Documentation [facility] Name: Padilla Maldonado Jr Age: 61 yrs Sex: Male : 1960 Arrival Date: 01/02/2022 Time: 15:30 Bed 7 Private MD: ED Physician Dallas Liz HPI: 01/02 18:10 This 61 yrs old Male presents to ER via Law Enforcement with complaints of jas Drug Abuse. 18:10 The patient presents to the emergency department with anxiety, psychosis, a history of jas substance abuse, Type: beer, methamphetamines. Onset: The symptoms/episode began/occurred just prior to arrival. Past psychiatric history: Prior diagnosis: addiction history, depression, Psychiatric medications include: none. The patient presents with agitation, confusion. Possible causes: drug use, amphetamines, alcohol, low blood sugar. Associated signs and symptoms: Pertinent positives: confusion. Associated signs and symptoms: Pertinent positives; substance abuse. Current symptoms: In the emergency department the patient's symptoms are unchanged from the initial presentation, despite EMS interventions. Patient's baseline: Neuro: alert and fully oriented. Historical: - Allergies: 17:14 [place]; jh6 17:14 PENICILLINS; 6 - PMHx: 17:14 brain injury; COPD; Diabetes - NIDDM; GERD; High Cholesterol; Hypertension; 6 Osteoporosis; trigeminal nerve problem; - PSHx: 17:14 toenails removed; 6 - Social history:: Smoking status: Patient reports the use of cigarette tobacco products, Patient uses street drugs, Methamphetamine (Meth). - Family history:: not pertinent. ROS: 18:10 Constitutional: Negative for fever, chills, and weight loss, Eyes: Negative for injury, jas pain, redness, and discharge, ENT: Negative for injury, pain, and discharge, Neck: Negative for injury, pain, and swelling, Cardiovascular: Negative for chest pain, palpitations, and edema, Respiratory: Negative for shortness of breath, cough, wheezing, and pleuritic chest pain, Abdomen/GI: Negative for abdominal pain, nausea, vomiting, diarrhea, and constipation, Back: Negative for injury and pain, : Negative for injury, bleeding, discharge, and swelling, MS/Extremity: Negative for injury and deformity, Skin: Negative for injury, rash, and discoloration, Allergy/Immunology: Negative for hives, rash, and allergies, Endocrine: Negative for neck swelling, polydipsia, polyuria, polyphagia, and marked weight changes, Hematologic/Lymphatic: Negative for swollen nodes, abnormal bleeding, and unusual bruising. 18:10 Neuro: Positive for altered mental status, weakness. Exam: 18:10 Constitutional: This is a well developed, well nourished patient who is awake, alert, jas and in no acute distress. Head/Face: Normocephalic, atraumatic. Eyes: Pupils equal round and reactive to light, extra-ocular motions intact. Lids and lashes normal. Conjunctiva and sclera are non-icteric and not injected. Cornea within normal limits. Periorbital areas with no swelling, redness, or edema. ENT: Nares patent. No nasal discharge, no septal abnormalities noted. Tympanic membranes are normal and external auditory canals are clear. Oropharynx with no redness, swelling, or masses, exudates, or evidence of obstruction, uvula midline. Mucous membranes moist. Neck: Trachea midline, no thyromegaly or masses palpated, and no cervical lymphadenopathy. Supple, full range of motion without nuchal rigidity, or vertebral point tenderness. No Meningismus. Chest/axilla: Normal chest wall appearance and motion. Nontender with no deformity. No lesions are appreciated. Cardiovascular: Regular rate and rhythm with a normal S1 and S2. No gallops, murmurs, or rubs. Normal PMI, no JVD. No pulse deficits. Respiratory: Lungs have equal breath sounds bilaterally, clear to auscultation and percussion. No rales, rhonchi or wheezes noted. No increased work of breathing, no retractions or nasal flaring. Abdomen/GI: Soft, non-tender, with normal bowel sounds. No distension or tympany. No guarding or rebound. No evidence of tenderness throughout. Back: No spinal tenderness. No costovertebral tenderness. Full range of motion. Male : Normal genitalia with no discharge or lesions. Skin: Warm, dry with normal turgor. Normal color with no rashes, no lesions, and no evidence of cellulitis. MS/ Extremity: Pulses equal, no cyanosis. Neurovascular intact. Full, normal range of motion. Neuro: Awake and alert, GCS 15, oriented to person, place, time, and situation. Cranial nerves II-XII grossly intact. Motor strength 5/5 in all extremities. Sensory grossly intact. Cerebellar exam normal. Normal gait. 18:10 Psych: Behavior/mood is anxious, aggressive, Affect is animated, Not oriented to place, time, Patient has no thoughts/intents to harm self or others. Judgement / Insight is impaired. unknown. Delusions/hallucinations are not present. 18:17 ECG was reviewed by the Attending Physician. jas Vital Signs: 16:00 BP 142 / 78; Pulse 107; Resp 20; Pulse Ox 99% ; Pain 0/10; jh6 16:30 BP 140 / 85; Pulse 99; Resp 16; Pulse Ox 99% on 2 lpm NC; Pain 0/10; jh6 17:00 BP 133 / 80; Pulse 97; Resp 20; Pulse Ox 99% on 2 lpm NC; Pain 0/10; jh6 21:00 BP 127 / 77; Pulse 92; Resp 16; Pulse Ox 100% ; st1 22:00 BP 122 / 64; Pulse 63; Resp 14; Pulse Ox 100% ; st1 23:33 BP 130 / 86; Pulse 58; Resp 16; Pulse Ox 99% on R/A; st1 03/05 02:29 BP 128 / 70; Pulse 60; Resp 17; Pulse Ox 98% on R/A; sm5 03:30 BP 138 / 68; Pulse 71; Resp 18; Pulse Ox 100% on R/A; Pain 0/10; st1 07:15 BP 134 / 72; Pulse 56; Resp 17; Pulse Ox 99% ; Pain 0/10; jh6 NIH Stroke Scale Scores: 01/02 18:10 NIHSS Score: 0 jas MDM: 15:35 Patient medically screened. jas 18:14 Differential diagnosis: drug withdrawal. acute psychotic break, depression, psychosis jas secondary to non-compliance. Differential Diagnosis: electrolyte abnormality, alcohol intoxication, hypoglycemia, intracranial bleed, overdose, UTI, volume depletion. Data reviewed: vital signs, nurses notes, lab test result(s), EKG. Data interpreted: child monitor: rate is 97 beats/min, rhythm is regular, Pulse oximetry: on room air is 99 %. Test interpretation: by ED physician or midlevel provider: ECG. Counseling: I had a detailed discussion with the patient and/or guardian regarding: the historical points, exam findings, and any diagnostic results supporting the discharge/admit diagnosis, lab results. 01/03 07:48 ED course: Signed out to me by Dr. Stroud, plan was to reeval after sober to see if rn could be discharged home.. 07:56 ED course: Pt awake, eating, ambulatory, now sober and feels better. Pt denies any rn suicidal or homicidal ideations. No hallucinations. Stable vitals. Requests another tray of food. Will dc home given now sober and does not endorse thoughts of harming himself or others.. 01/02 15:36 Order name: Acetaminophen [facility] 01/02 15:36 Order name: Basic Metabolic Panel [facility] 01/02 15:36 Order name: CBC with Diff [facility] 01/02 15:36 Order name: ETOH Level [facility] 01/02 15:36 Order name: Hepatic Function [facility] 01/02 15:36 Order name: PT-INR; Complete Time: 17:21 [facility] 01/02 15:36 Order name: Ptt, Activated; Complete Time: 17:21 [facility] 01/02 15:36 Order name: Salicylate; Complete Time: 17:21 [facility] 01/02 15:36 Order name: Acetaminophen Level; Complete Time: 17:21 EDMD 01/02 15:36 Order name: Basic Metabolic Panel; Complete Time: 17:21 EDMD 01/03 02:24 Interpretation: Normal except: K 3.2; CL 108; GLUC 121; BUN 38; GFR 62. 01/02 15:36 Order name: CBC with Automated Diff; Complete Time: 17:21 EDMD 01/03 02:24 Interpretation: Normal except: WBC 11.00; MPV 7.5; MARLIN% 80.8; LYM% 8.6; NEUT A 8.9. 01/02 15:36 Order name: Alcohol Serum/Plasma; Complete Time: 17:21 EDMD 01/03 02:25 Interpretation: Reviewed. 01/02 15:36 Order name: Liver (Hepatic) Function; Complete Time: 17:21 EDMD 01/03 02:24 Interpretation: Normal except: AST 82; BILIT 1.1; BILID 0.3; GLOB 4.0; A/G 1.0. 01/02 15:36 Order name: EKG; Complete Time: 15:36 [facility] 01/02 15:36 Order name: EKG - Nurse/Tech; Complete Time: 19:24 [facility] 01/02 15:36 Order name: IV Saline Lock; Complete Time: 16:07 [facility] 01/02 15:36 Order name: Labs collected and sent; Complete Time: 19:24 [facility] 01/02 18:19 Order name: Diet Regular; Complete Time: 18:19 [facility] 01/03 07:24 Order name: Diet Regular; Complete Time: 07:24 [facility] EC/04 18:17 Rate is 104 beats/min. Rhythm is regular. QRS [place] is Normal. DC interval is normal. jas QRS interval is normal. QT interval is normal. No Q waves. T waves are Normal. No ST changes noted. Clinical impression: Normal ECG and No evidence of ischemia. Interpreted by me. Reviewed by me. Administered Medications: 15:45 Drug: Geodon (ziprasidone) 20 mg Route: IM; Site: right deltoid; iw 15:45 Drug: Ativan (LORazepam) 2 mg Route: IM; Site: right deltoid; iw 15:52 Not Given (Duplicate Order): Ativan (LORazepam) 2 mg IVP once iw 16:06 Drug: NS 0.9% 1000 ml Route: IV; Rate: 1 bolus; Site: right upper arm; 6 16:06 Drug: Thiamine 100 mg Route: IV; Rate: bolus; Site: right upper arm; 6 19:34 Drug: D5-1/2 NS with KCl 20 mEq/L 1000 ml Route: IV; Rate: 125 ml/hr; Site: right upper ab2 arm; Disposition Summary: 01/03/22 07:57 Discharge Ordered Location: Home rn Problem: new rn Symptoms: have improved rn Condition: Stable rn Diagnosis - Adverse effect of amphetamines rn Followup: rn - With: Private Physician - When: As needed - Reason: Recheck today's complaints, Re-evaluation by your physician Discharge Instructions: - Discharge Summary Sheet rn - Methamphetamines Use Disorder rn Forms: - Medication Reconciliation Form rn - Thank You Letter rn - Antibiotic rn oncology research - Prescription Opioid Use rn NIH Stroke Scale - NIH Stroke Score Date: 01/02/2022 Time: 18:10 Total Score = 0 1a. Level of Consciousness (LOC) - 0(Alert) 1b. Level of Consciousness (LOC) (Month \T\ Age) - 0(Both) 1c. LOC Commands (Open \T\ Closes Eyes/Medical Receptionist) - 0(Both) 2. Best Gaze (Lateral Gaze Paresis) - 0(Normal) 3. Visual Field Loss - 0(No visual loss) 4. Facial Palsy - 0(Normal) 5a. Left Arm: Motor (10-second hold) - 0(No drift) 5b. Right Arm: Motor (10-second hold) - 0(No drift) 6a. Left Leg: Motor (5-second hold - always test supine) - 0(No drift) 6b. Right Leg: Motor (5-second hold - always test supine) - 0(No drift) 7. Limb Ataxia (finger/nose \T\ heel/smith - test with eyes open) - 0(Absent) 8. Sensory Loss (pinprick arms/legs/face) - 0(Normal) 9. Best Language: Aphasia (description/naming/reading) - 0(No aphasia) 10. Dysarthria (speech clarity - read or repeat words) - 0(Normal) 11. Extinction and Inattention (visual/tactile/auditory/spatial/personal) - 0(No abnormality) Initials: jas Signatures: Dispatcher [employer] Garcia Sierra MD MD cha Williams, Irene, RN RN Dallas Walter MD MD rn Page, Corey, PA PA cp Hastedt, Jennifer, RN RN 6 Gilberto Fontenot
--- NOTE | 2022-01-03 07:57 | ER ---
Nurse's Notes [facility] Name: Padilla Maldonado Jr Age: 61 yrs Sex: Male : 1960 Arrival Date: 01/02/2022 Time: 15:30 Bed 7 Private MD: Diagnosis: Adverse effect of amphetamines Presentation: 01/02 15:30 Chief complaint: pt arrives to ER in [place] police custody , pt is screaming, combative, iw hitting himself, pt is cuffed, pt reports he ate some meth. Coronavirus screen: At this time, the client does not indicate any symptoms associated with coronavirus-19. Ebola Screen: Patient negative for fever greater than or equal to 101.5 degrees Fahrenheit, and additional compatible Ebola Virus Disease symptoms Patient denies exposure to infectious person. Patient denies travel to an Ebola-affected area in the 21 days before illness onset. No symptoms or risks identified at this time. Onset of symptoms was January 02, 2022. 15:30 Method Of Arrival: Law Enforcement: [place] [employer] iw 15:30 Acuity: LONA 2 iw 16:06 Initial Sepsis Screen: Does the patient meet any 2 criteria? No. Patient's initial iw sepsis screen is negative. Does the patient have a suspected source of infection? No. Patient's initial sepsis screen is negative. Risk Assessment: Do you want to hurt yourself or someone else? Unable to obtain. Historical: - Allergies: 17:14 [place]; jh6 17:14 PENICILLINS; jh6 - PMHx: 17:14 brain injury; COPD; Diabetes - NIDDM; GERD; High Cholesterol; Hypertension; jh6 Osteoporosis; trigeminal nerve problem; - PSHx: 17:14 toenails removed; jh6 - Social history:: Smoking status: Patient reports the use of cigarette tobacco products, Patient uses street drugs, Methamphetamine (Meth). - Family history:: not pertinent. Screenin:30 Abuse screen: unable to answer questions due to pt being verbally combative and hostile [facility] towards staff and pd. Fall Risk IV access (20 points). Gait- Impaired (20 pts.). Mental Status- Overestimates/Forgets Limitations (15 pts.). 01/03 09:10 Nutritional screening: No deficits noted. pt ate two meal trays and has had two coffees jh6 this am without n/v or abd pain. 09:10 Tuberculosis screening: No symptoms or risk factors identified. 6 Assessment: 01/02 15:30 General: Appears slender, unkempt, Behavior is agitated, anxious, combative. jh6 15:30 Pain: Denies pain. Neuro: Level of Consciousness is awake, Oriented to person, place, jh6 time, pt hyper verbal and admits to Meth use earlier today. . 16:30 Reassessment: No changes from previously documented assessment. pt sleeping at this jh6 time, iv fluids running in without issue. call light in reach and on monitor. 17:16 Reassessment: Patient and/or family updated on plan of care and expected duration. Pain jh6 level reassessed. Patient is alert, oriented x 3, equal unlabored respirations, skin warm/dry/pink. pt sleeping without respiratory compromise noted. call light in reach, door to room open and pt next to nurses station. pt on monitor and o2 at this time. 19:30 Reassessment: Patient appears in no apparent distress at this time. No changes from st1 previously documented assessment. Patient and/or family updated on plan of care and expected duration. Pain level reassessed. Patient is alert, oriented x 3, equal unlabored respirations, skin warm/dry/pink. 01/03 00:35 Reassessment: the patient remains asleep, NAD noted. continue to monitor. st1 02:29 Reassessment: No changes from previously documented assessment. 5 04:01 General: No changes to previous documented assessment. patient sleeping at this time, st1 NAD noted. Call light is within reach. the patient remains on the bedside monitor. Continue to monitor patients progress. . 07:14 Reassessment: Patient is alert, oriented x 3, equal unlabored respirations, skin jh6 warm/dry/pink. pt sleeping = rise and fall of chest. call light in reach. 07:58 Reassessment: Patient and/or family updated on plan of care and expected duration. Pain jh6 level reassessed. pt alert drinking coffee and eating sandwich. asked how he was feeling today and if he was feeling suicidal. He responded no and that he doesn't remember yesterday when he came in. Pt does admit to using drugs and states sometimes he wont sleep for a couple of days. Overdose: 01/02 15:30 [place] Suicide Severity Screening: "In the past month, have you wished you were jh6 or wished you could go to sleep and not wake up?" Patient responds "yes." Based off client's responses, additional C-SSRS screening questions required. "In the past month, have you actually had any thoughts of killing yourself?". Vital Signs: 16:00 BP 142 / 78; Pulse 107; Resp 20; Pulse Ox 99% ; Pain 0/10; jh6 16:30 BP 140 / 85; Pulse 99; Resp 16; Pulse Ox 99% on 2 lpm NC; Pain 0/10; jh6 17:00 BP 133 / 80; Pulse 97; Resp 20; Pulse Ox 99% on 2 lpm NC; Pain 0/10; jh6 21:00 BP 127 / 77; Pulse 92; Resp 16; Pulse Ox 100% ; st1 22:00 BP 122 / 64; Pulse 63; Resp 14; Pulse Ox 100% ; st1 23:33 BP 130 / 86; Pulse 58; Resp 16; Pulse Ox 99% on R/A; st1 03/05 02:29 BP 128 / 70; Pulse 60; Resp 17; Pulse Ox 98% on R/A; sm5 03:30 BP 138 / 68; Pulse 71; Resp 18; Pulse Ox 100% on R/A; Pain 0/10; st1 07:15 BP 134 / 72; Pulse 56; Resp 17; Pulse Ox 99% ; Pain 0/10; jh6 NIH Stroke Scale Scores: 01/02 18:10 NIHSS Score: 0 [facility] ED Course: 15:30 Patient arrived in ED. eb 15:30 Bed in low position. Call light in reach. Side rails up X2. jh6 15:30 Arm band placed on right wrist. jh6 15:35 Garcia Mays MD is Attending Physician. jas 15:55 Lisa Frost, WES is Primary Nurse. jh6 16:06 Triage completed. iw 17:15 Inserted saline lock: 20 gauge in right upper arm, using aseptic technique. Blood 6 collected. 18:33 Garcia Nj PA is PHCP. cp 19:23 Acetaminophen Sent. sm5 19:23 Basic Metabolic Panel Sent. sm5 19:23 CBC with Diff Sent. sm5 19:23 ETOH Level Sent. sm5 19:24 Hepatic Function Sent. sm5 20:15 Primary Nurse role handed off by Lisa Frost, WES cs9 01/03 00:07 Mary Ryan, WES is Primary Nurse. 5 07:10 IV discontinued, intact, bleeding controlled, No redness/swelling at site. Pressure jh6 dressing applied. 07:[address] [facility] Crisis line/ Kisha will page out the screener aeronautical engineering teacher. eb 07:48 Attending Physician role handed off by Garcia Mays MD rn 07:48 Dallas Liz MD is Attending Physician. rn Administered Medications: 01/02 15:45 Drug: Geodon (ziprasidone) 20 mg Route: IM; Site: right deltoid; iw 15:45 Drug: Ativan (LORazepam) 2 mg Route: IM; Site: right deltoid; iw 15:52 Not Given (Duplicate Order): Ativan (LORazepam) 2 mg IVP once iw 16:06 Drug: NS 0.9% 1000 ml Route: IV; Rate: 1 bolus; Site: right upper arm; jh6 16:06 Drug: Thiamine 100 mg Route: IV; Rate: bolus; Site: right upper arm; jh6 19:34 Drug: D5-1/2 NS with KCl 20 mEq/L 1000 ml Route: IV; Rate: 125 ml/hr; Site: right upper ab2 arm; Outcome: 01/03 07:57 Discharge ordered by . rn 09:10 Discharged to home ambulatory. 6 09:10 Condition: improved [facility] 09:10 Discharge instructions given to patient, Instructed on discharge instructions, Demonstrated understanding of instructions. 09:37 Patient left the ED. [facility] NIH Stroke Scale - NIH Stroke Score Date: 01/02/2022 Time: 18:10 Total Score = 0 1a. Level of Consciousness (LOC) - 0(Alert) 1b. Level of Consciousness (LOC) (Month \\T\\ Age) - 0(Both) 1c. LOC Commands (Open \\T\\ Closes Eyes/[place]) - 0(Both) 2. Best Gaze (Lateral Gaze Paresis) - 0(Normal) 3. Visual Field Loss - 0(No visual loss) 4. Facial Palsy - 0(Normal) 5a. Left Arm: Motor (10-second hold) - 0(No drift) 5b. Right Arm: Motor (10-second hold) - 0(No drift) 6a. Left Leg: Motor (5-second hold - always test supine) - 0(No drift) 6b. Right Leg: Motor (5-second hold - always test supine) - 0(No drift) 7. Limb Ataxia (finger/nose \\T\\ heel/smith - test with eyes open) - 0(Absent) 8. Sensory Loss (pinprick arms/legs/face) - 0(Normal) 9. Best Language: Aphasia (description/naming/reading) - 0(No aphasia) 10. Dysarthria (speech clarity - read or repeat words) - 0(Normal) 11. Extinction and Inattention (visual/tactile/auditory/spatial/personal) - 0(No abnormality) Initials: [facility] Signatures: Garcia Mays MD MD cha Williams, Irene, RN RN Dallas Walter MD MD rn Page, Corey, PA PA cp Botello, Elizabeth eb Stanford, Christine 9 Lisa Frost RN RN 6 Mary Ryan RN RN 5 Gilberto Fontenot ab2 Margarita Elena RN RN st1 Corrections: (The following items were deleted from the chart) 01/02 17:10 17:06 General: Appears slender, unkempt, Behavior is agitated, anxious, [facility] combative, [facility] 17:11 17:06 Pain: Denies pain. [place] [id number] 17:11 17:06 Neuro: Level of Consciousness is awake, Oriented to person, place, time, [facility] pt hyper verbal and admits to Meth use earlier today. . [facility]
[2022-01-03 10:24] VITALS: BP 134/72; O2SAT 99
== END 2022-01-03 09:37 | disposition home or self-care (01) ==
LOC: ER 15:27
DX: R41.82 Altered mental status, unspecified (principal); T43.625A Adverse effect of amphetamines, initial encounter; I10 Essential (primary) hypertension; E11.9 Type 2 diabetes mellitus without complications; Z88.0 Allergy status to penicillin; Z91.018 Allergy to other foods; Z72.0 Tobacco use
CPT/HCPCS: 93005; 85025; 80048; 36415; 80320; 80329 ×2; 85610; 80076; 85730; 96372; 96374; 99284; J3411; J3486; J7030

== ENCOUNTER 2023-09-24 08:56 | Emergency (ER) | payer MEDICARE, OTHER ==
--- OUTSIDE RECORDS SUMMARY | 2023-09-24 08:59 | XMS REPORT | Continuity of Care Document ---
:1960 Author Organization [facility] t Address [address] [place] [address] Care Team Providers Name Role Phone PCP, PATIENT DOES NOT HAVE A Primary Care Physician UnavailNADIR Thomas Attending Clinician Unavailable Team, [facility] Health Maintenance Attending Clinician Unavailabl e RADIOLOGY Attending Clinician Unavailable PAUL LILLY Attending Clinician Unavailable SUKHJINDER LOSON Attending Clinician Unavailable Anita Kim Attending Clinician ANITA BENJAMIN Attending Clinician Unavailable NADIR BRIZUELA Admitting Clinician Unavailable Payers Payer Name Policy Type Policy Number Effective Date Expiration Date S ource DCB COMPETENCY [id number] 2023 YARSANISM 00:00:00 Problems Condition Condition Condition Status Onset Resolution Last Treating Co mments Source Name Details Category Date Date Treatment Clinician Date No known No known Disease Unive rs active active ity of problems problems [facility] Cellulitis Problem Active [facility] Allergies, Adverse Reactions, Alerts Allergy Allergy Status Severity Reaction(s) Onset Inactive Treating Comm ents Source Name Type Date Date Clinician Penicill Propensi Active Rash 2020-0 Univer s in ty to 3-23 ity of adverse 00:00: [place] reaction [address] [place] [address] s Branch PENICILL DRUG Active Rash 2020-0 Univers IN INGREDI 3-23 ity of 00:00: [address] No Known DA Active [facility] Social History Social Habit Start Date Stop Date Quantity Comments Source Sex Assigned At [birth year] [facility] 00:00:00 00:00:00 [facility] [place] Smoking Status Start Date Stop Date Source Unknown if ever smoked [facility] Medications Ordered Filled Start Stop Current Ordering Indication Dosage Frequency Signature Comments Components Source Medication Medication Date Date Medication? Clinician (SIG) Name Name No known No Univers medications 2-16 ity of 12:51: [address] Vital Signs Vital Name Observation Time Observation Value Comments Source Oxygen saturation by 2021-01-08 09:24:00 99 /min [facility] Pulse oximetry Patient Medic de Center Weight 2021-01-08 09:24:00 169 [lb_av] [facility] BMI (Body Mass Index) 2021-01-08 09:24:00 27.3 kg/m2 [facility] Procedures This patient has no known procedures. Plan of Care Planned Activity Planned Date Details Comments Source Instructions Cellulitis [facility] Encounters Start End Encounter Admission Attending Care Care Encounter Source Date/Time Date/Time Type Type Clinicians Facility Department ID 2023-04-07 Outpatient [facility] [id number] [place] 13:28:02 [id number] [facility] 2021-01-08 Inpatient [facility] [id number] [facility] 09:00:00 -[id number] [facility] 2023-09-21 2023-09-21 Outpatient LEISA DE LA FUENTE [id number] [place] 13:08:27 13:08:27 [address] 2023-04-07 2023-07-28 [id number] [facility] 13:39:00 12:20:00 NADIR 2021-12-18 2021-12-18 Telephone Team, [facility] HONEY [id number] [place] 00:00:00 00:00:00 Health GIULIA [id number] it y of [facility] [id number] [place] [id number] [facility] [address] 2021-11-04 2021-11-04 Outpatient R RADIOLOGY [facility] [id number] Univers [facility]:00[facility] 2021-10-27 2021-10-27 Outpatient R RADIOLOGY [facility] [id number] Univers 00:00:00 00:00:00 [facility] 2021-01-08 2021-01-[address] [facility] [place] [id number] 09:31:00 10:47:00 Emergency Patients 27 [place] [facility] 2020-12-17 2020-12-17 Emergency X MAXX, [facility] ERT [id number] Univers 11:33:00 11:33:00 PAUL [facility] 2020-04-16 2020-04-17 Emergency E AZNAUROVA-A [facility] [address] [id number] MHBL 19:11:00 02:09:00 SUKHJINDER ACUNA 2020-01-22 2020-01-22 Emergency [facility] [id number] 10:18:24 11:03:00 Anita Moran [id number] [place] [id number] [place] [id number] 2020-01-22 2020-01-22 Emergency X [facility] ERT [id number] Univers 10:18:24 10:18:24 ANITA [facility] 2007-12-01 2007-12-01 Outpatient [facility] [id number] Univers 00:00:00 14:55:20 3 [facility] Results Test Description Test Time Test Comments Results Result Comments Source HEMOGLOBIN A1c 2021-10-16 03:39:30 Test Item Value Reference Range Interpretation Comme nts HEMOGLOBIN A1c (test code = 6.6 % 4.2-5.6 H [employer] 86209) GUIDELINES FOR HGB A1C: PREDIABETES/INC REASED RISK . . . . . . . 5.7-6.4% DIAGNO SIS OF DIABETES . . . . . . . . . >=6.5% WITH CONFIRMATION OR APPROPRIATE SYM PTOMS NOTE: ASSAY MAY BE AFFECTED BY HEM OGLOBINOPATHIES (SICKLE CELL ANEMIA, S- C DISEASE, OTHERS) OR ARTIFICIALLY LO WERED BY DECREASED RED CELL SURVIVAL ( HEMOLYTIC ANEMIAS, BLOOD LOSS, ETC.). CO NSIDER ALTERNATE TESTING OR LABORATORY C ONSULTATION. UNLESS OTHERWISE INDIC ATED, ALL TESTING PERFORMED [facility], [address] [address] RANDOLPH THAYER DIRECTOR: EUGENIO PEREZ M.D. CLIA NUMBER [id number] [place] [id number]
--- NOTE | 2023-09-24 09:35 | ER ---
Nurse's Notes [facility] Name: Padilla Maldonado Jr Age: 63 yrs Sex: Male : 1960 Arrival Date: 09/24/2023 Time: 08:56 Bed 20 Private MD: Bernardo Gonzalez Diagnosis: Right hip contusion Presentation: 09/24 09:08 Chief complaint: Patient states: R hip for 3 weeks s/p fall. Coronavirus screen: ll1 Vaccine status: Patient reports being unvaccinated. Client denies travel out of the [place] in the last 14 days. At this time, the client does not indicate any symptoms associated with coronavirus-19. Ebola Screen: Patient denies travel to an Ebola-affected area in the 21 days before illness onset. Initial Sepsis Screen: Does the patient meet any 2 criteria? No. Patient's initial sepsis screen is negative. Does the patient have a suspected source of infection? No. Patient's initial sepsis screen is negative. Risk Assessment: Do you want to hurt yourself or someone else? Patient reports no desire to harm self or others. Onset of symptoms was September 02, 2023. 09:08 Method Of Arrival: EMS ll1 09:08 Acuity: LONA 4 ll1 Triage Assessment: 09:09 General: Appears in no apparent distress. Behavior is calm, cooperative, appropriate ll1 for age. Pain: Complains of pain in R hip Pain currently is 8 out of 10 on a pain scale. Quality of pain is described as aching. Musculoskeletal: Circulation, motion, and sensation intact. Capillary refill < 3 seconds, Reports pain in R hip. 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 - Social history:: Smoking status: Reported history of juuling and/or vaping. Screenin:15 [facility] ED Fall Risk Assessment (Adult) Score/Fall Risk Level 0 - 2 = Low Risk. Abuse eh3 screen: Denies threats or abuse. Denies injuries from another. Nutritional screening: No deficits noted. Tuberculosis screening: No symptoms or risk factors identified. Assessment: 09:15 General: Appears in no apparent distress. uncomfortable, Behavior is cooperative, eh3 appropriate for age. Pain: Complains of pain in right hip. Neuro: Level of Consciousness is awake, alert, obeys commands, Oriented to person, place, time, situation. Cardiovascular: Capillary refill < 3 seconds Patient's skin is warm and dry. Respiratory: Airway is patent Respiratory effort is even, unlabored, Respiratory pattern is regular, symmetrical. GI: Abdomen is round non-distended. Derm: Skin is pink, warm \\T\\ dry. Musculoskeletal: Circulation, motion, and sensation intact. 10:00 Reassessment: Pt states he has no way to get home, called sister Sara but no answer, eh3 left message. Vital Signs: 09:08 BP 136 / 79; Pulse 70; Resp 17; Temp 97.3; Pulse Ox 98% ; Weight 71.67 kg; Height 5 ft. ll1 6 in. ; Pain 8/10; 09:08 Body Mass Index 25.50 (71.67 kg, 167.64 cm) ll1 09:08 Pain Scale: Adult ll1 ED Course: 08:56 Patient arrived in ED. as 08:56 Arm band placed on Patient placed in an exam room, on a stretcher. ll1 08:57 Bernardo Gonzalez is Private Physician. as 08:59 Minerva García MD is Attending Physician. sp3 09:09 Triage completed. ll1 09:15 Patient has correct armband on for positive identification. Bed in low position. Call eh3 light in reach. Side rails up X2. Provided Education on: use of call mehta. Pulse ox on. NIBP on. 09:35 Hip Right 2 View XRAY In Process Unspecified. EDMS 09:37 Karolyn Wagner, WES is Primary Nurse. eh3 09:39 No provider procedures requiring assistance completed. Patient did not have IV access eh3 during this emergency room visit. Administered Medications: No medications were administered Medication: :39 VIS not applicable for this client. eh3 Outcome: :35 Discharge ordered by . sp3 10:04 Discharged to home ambulatory, eh3 10:04 Condition: stable 10:04 Discharge instructions given to patient, Instructed on discharge instructions, follow up and referral plans. medication usage, Demonstrated understanding of instructions, follow-up care, medications, Prescriptions given X 1, 10:04 Patient left the ED. eh3 Signatures: Dispatcher [employer] EDMS Grisel Tony Lynsay, RN RN ll1 Minerva García MD MD sp3 Karolyn Wagner RN RN eh3
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
--- NOTE | 2023-09-24 09:52 | RAD REPORT ---
EXAM DESCRIPTION: RAD - Hip Right 2 View - 09/24/2023 9:34 am CLINICAL HISTORY: Right hip pain FINDINGS: No fracture or dislocation is seen. The bones are osteoporotic. If patient continues to have symptoms to suggest an occult fracture then MRI would be recommended
[2023-09-24 10:09] VITALS: BP 136/79; TEMP 97.3; O2SAT 98
== END 2023-09-24 10:04 | disposition home or self-care (01) ==
LOC: ER 08:56
DX: S70.01XA Contusion of right hip, initial encounter (principal); Z88.0 Allergy status to penicillin; Z91.018 Allergy to other foods
CPT/HCPCS: 99283

== ENCOUNTER → 2023-10-31 | Emergency (ER) | payer MEDICARE, OTHER ==
--- OUTSIDE RECORDS SUMMARY | 2023-10-31 16:13 | XMS REPORT | Continuity of Care Document ---
Author Name Unknown Address [address] [place] [address] [facility] thconnect Address [address] [place] [address] Care Team Providers Care Director Digital Sales Name Role Phone NO, PCP Primary Care Physician UnavailNADIR Whitfield Attending Clinician Unavailab le Team, [facility] Health Maintenance Attending Clinicia n Unavailable RADIOLOGY Attending Clinician Unavailable PAUL LILLY Attending Clinician Unavailable SUKHJINDER OLSON Attending Clinician Un available Anita Kim Attending Clinician [phone] ANITA BENJAMIN Attending Clinician Unavailable NADIR BRIZUELA Admitting Clinician Unavailab ferrara Payers Payer Name Policy Type Policy Number Effective Date Expirati on Date Source [employer] [id number] 2023 00:00:00 Problems Condition Name Condition Details Condition Category Status Onset Date Resolution Date Last Treatment Date Treating Clinician Comments Source Cellulitis Problem Active [facility] No known active problems No known active problems Disease [facility] Allergies, Adverse Reactions, Alerts Allergy Name Allergy Type Status Severity Reaction(s) Onset Date Inactive Date Treating Clinician Comments Source Penicill in Propensi ty to adverse reaction s Active Rash 01-21 00:00: 00 [facility] PENICILL IN DRUG INGREDI Active Rash 0 01-21 00:00: 00 [facility] No Known Allergie s DA Active [facility] Social History Social Habit Start Date Stop Date Quantity Comments Source Sex Ass[birth year] At 1960 00:00:00 1960 00:00:00 [facility] Smoking Status Start Date Stop Date Source Unknown if ever smoked [facility] Medications Ordered Medication Name Filled Medication Name Start Date Stop Date Current Medication? Ordering Clinician Indication Dosage Frequency Signature (SIG) Comments Components Source No known medications 16 12:51: 33 No [facility] Vital Signs Vital Name Observation Time Observation Value Comments S ource Oxygen saturation by Pulse oximetry 2021-01-08 09:24:00 99 /min [facility] Weight 2021-01-08 09:24:00 169 [lb_av] [facility] BMI (Body Mass Index) 2021-01-08 09:24:00 27.3 kg/m2 [facility] Plan of Care Planned Activity Planned Date Details Comments Source Instructions Cellulitis [facility] Encounters Start Date/Time End Date/Time Encounter Type Admission Type Attending Clinicians Care Facility Care Department Encounter ID Source 2023-04-07 13:28:02 Outpatient [facility] [id number] [facility] 2021-01-08 09:00:[address] [facility] [id number] [facility] 2023-10-04 10:48:24 2023-10-04 10:48:24 Outpatient [facility] [id number] 2023-09-21 13:08:27 2023-09-21 13:08:27 Outpatient [facility] [id number] 2023-04-07 13:39:00 2023-07-28 12:20:00 Outpatient NADIR BRIZUELA [facility] [id number] [facility] 2021-12-18 00:00:00 2021-12-18 00:00:00 Telephone Team, [facility] [id number] [facility] 2021-11-04 00:00:00 2021-11-04 00:00:00 Outpatient R RADIOLOGY [facility] [id number] [facility] 2021-10-27 00:00:00 2021-10-27 00:00:00 Outpatient R RADIOLOGY [facility] [id number] [facility] 2021-01-08 09:31:00 2021-01-08 10:47:00 Departed Emergency Room [facility] [id number] [facility] 2020-12-17 11:33:00 2020-12-17 11:33:00 Emergency X PAUL LILLY [facility] ERT [id number] [facility] 2020-04-16 19:11:00 2020-04-17 02:09:00 Emergency E SUKHJINDER GARZA [facility] [id number] [facility] 2020-01-22 10:18:24 2020-01-22 11:03:00 Emergency Anita Benjamin [facility] [id number] 2020-01-22 10:18:24 2020-01-22 10:18:24 Emergency X ANITA BENJAMIN [facility] ERT [id number] [facility] 2007-12-01 00:00:00 2007-12-01 14:55:20 Outpatient [facility] [id number] [facility] Results Test Description Test Time Test Comments Results Result Co mments Source
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
[2023-10-31 17:47] VITALS: BP 161/74; TEMP 97.5; O2SAT 100
== END ==
LOC: ER 16:09
DX: Z71.1 Person with feared health complaint in whom no diagnosis is made (principal); Z88.0 Allergy status to penicillin; Z91.018 Allergy to other foods
CPT/HCPCS: 99282

== ENCOUNTER 2025-06-23 12:20 | Emergency (ER) | payer OTHER ==
--- OUTSIDE RECORDS SUMMARY | 2025-06-23 12:25 | XMS REPORT | Continuity of Care Document ---
Author Name Unknown Address [address] [facility] [address] [place] [address] Organization [facility] [place] Address [address] [facility] [place] [address] Care Team Providers Care Grooming Salon Manager Name Role Phone NO, PCP Primary Care Physician Unavailab Bianca Pedro Attending Clinician Unavailable LONDON MOE Attending Clinician OSEI Coto Attending Clinician Unavailable Osei Jc MD Attending Clinician [phone] NADIR BRIZUELA Attending Clinician Unavailab alem Team, [facility] Maintenance Attending Andry rueda Unavailable RADIOLOGY Attending Clinician Unavailable PAUL LILLY Attending Clinician Unavailable SUKHJINDER OLSON Attending Clinician Un available Anita Kim Attending Clinician [phone] ANITA BENJAMIN Attending Clinician Unavailable Ramírez Hampton Admitting Clinician Unavailable NADIR BRIZUELA Admitting Clinician Unavailab ferrara Payers Payer Name Policy Type Policy Number Effective Date Expirati on Date Source DCB COMPETENCY MANDAEN [id number] 2023 00:00:00 Problems Condition Name Condition Details Condition Category Status Onset Date Resolution Date Last Treatment Date Treating Clinician Comments Source HAND SWELLING HAND SWELLING Active 06/29/2024 [facility] Active 8-29 00:00: 00 2024-06-30 01:43:00 Randy Leos BITES ALL OVER BITES ALL OVER Active 04/16/2020 [facility] Active 2019-0 6-16 00:00: 00 2020-04-16 22:26:00 Randy Leos CHEST PAIN CHEST PAIN Active 12/24/2018 [facility] Active 2- 00:00: 00 2019-01-26 20:23:00 Randy Leos Cellulitis Problem Active [facility] No known active problems No known active problems Disease [facility] History of Past Illness Condition Name Condition Details Condition Category Status Onset Date Resolution Date Last Treatment Date Treating Clinician Comments Source Erythema intertrigo Erythema intertrigo 0 04/19/2020 [facility] [place] Problem 2019-0 - 17:00: 00 2020-04-19 21:04:53 2020-04-19 21:04:53 Randy Leos Viral infection, unspecifie d Viral infection, unspecifie d 12/25/2018 12/27/2018 [facility] [place] Problem 2018- 2-24 06:00: 00 2018-12-27 22:35:37 2018-12-27 22:35:37 Randy Leos Allergies, Adverse Reactions, Alerts Allergy Name Allergy Type Status Severity Reaction(s) Onset Date Inactive Date Treating Clinician Comments Source No Known Allergie s DA Active U 2023-11 1 00:00: 00 [facility] Penicill in Propensi ty to adverse reaction s Active Rash 01-21 00:00: 00 [facility] PENICILL IN DRUG INGREDI Active Rash 3-23 00:00: 00 [facility] No Known Allergie s DA Active [facility] ALLERGIE S NOT ON FILE SYSTEMIC Active [facility] penicill in penicill in Active Randy Leos Social History Social Habit Start Date Stop Date Quantity Comments Source Gender identity 2024-01-23 07:43:15 Identifies as male gender (finding) Jorge Leos Epic Sexual orientation [facility] Sex Assigned At 1960 00:00:00 1960 00:00:00 [facility] Smoking Status Start Date Stop Date Source Tobacco smoking consumption unknown Jorge Leos Epi c Tobacco smoking status 2024-06-30 05:58:40 Jorge Leos Medications Ordered Medication Name Filled Medication Name Start Date Stop Date Current Medication? Ordering Clinician Indication Dosage Frequency Signature (SIG) Comments Components Source mupirocin topical 2% ointment 06-30 05:46: 00 Yes 1 appl, TOP, TID, X 5 day, # 15 gm, 0 Refill(s) Randy Leos Keflex 500 mg oral capsule 06-30 05:45: 00 Yes 500 mg = 1 cap, PO, QID, X 7 day, # 28 cap, 0 Refill(s) Randy Leos No known medications 12-17 12:51: 33 No [facility] Triple Antibiotic topical ointment 04-17 05:38: 00 Yes Notes: Non-formul kun drug. (Same As:Triple Antibiotic ) Randy Leos Motrin 04-17 05:34: 00 No Notes: (Same as: Motrin) "Do Not Crush" Take with food. Randy Leos naproxen 500 mg oral tablet 12-25 08:01: 00 Yes 500 mg = 1 tab, PO, Q12H, PRN Pain, X 10 day, # 20 tab, 0 Refill(s) Randy Leos Vital Signs Vital Name Observation Time Observation Value Comments Israel eugene Systolic (mm Hg) 2024-06-30 06:00:00 Jorge Leos Diastolic (mm Hg) 2024-06-30 06:00:00 Jorge Leos Heart Rate 2024-06-30 06:00:00 Catherine Leos Height 2024-06-30 04:54:00 5 [ft_i] Catherine Leos BMI Calculated 2024-06-30 04:54:00 [facility] Weight 2024-06-30 04:54:00 Catherine Leos Temperature Oral (F) 2024-06-30 04:54:00 98.3 F Jorge Leos Oxygen saturation by Pulse oximetry 2021-01-08 09:24:00 99 /min [facility] Weight 2021-01-08 09:24:00 169 [lb_av] [facility] BMI (Body Mass Index) 2021-01-08 09:24:00 27.3 kg/m2 [facility] Heart Rate 2020-04-17 07:05:00 [facility] Respitory Rate 2020-04-17 07:05:00 [facility] Systolic (mm Hg) 2020-04-17 07:05:00 [facility] Diastolic (mm Hg) 2020-04-17 07:05:00 [facility] Temperature Oral (F) 2020-04-17 07:05:00 98.2 F [facility] Weight 2020-04-17 00:35:00 [facility] Systolic (mm Hg) 2020-04-17 00:35:00 [facility] Diastolic (mm Hg) 2020-04-17 00:35:00 [facility] Heart Rate 2020-04-17 00:35:00 [facility] Respitory Rate 2020-04-17 00:35:00 [facility] Temperature Oral (F) 2020-04-17 00:35:00 97.6 F [facility] Temperature Oral (F) 2018-12-25 08:21:00 98 F [facility] Systolic (mm Hg) 2018-12-25 08:21:00 [facility] Diastolic (mm Hg) 2018-12-25 08:21:00 [facility] Respitory Rate 2018-12-25 08:21:00 [facility] Temperature Oral (F) 2018-12-25 07:46:00 98 F [facility] Respitory Rate 2018-12-25 07:46:00 [facility] Systolic (mm Hg) 2018-12-25 07:46:00 [facility] Diastolic (mm Hg) 2018-12-25 07:46:00 [facility] Respitory Rate 2018-12-25 06:42:00 [facility] Systolic (mm Hg) 2018-12-25 06:42:00 [facility] Diastolic (mm Hg) 2018-12-25 06:42:00 [facility] Temperature Oral (F) 2018-12-25 06:42:00 98 F [facility] Heart Rate 2018-12-25 01:00:00 [facility] BMI Calculated 2018-12-25 01:00:00 [facility] Height 2018-12-25 01:00:00 167.64 cm [facility] Weight 2018-12-25 01:00:00 [facility] Procedures Procedure Date / Time Performed Performing Clinicia n Source XR HAND 3+ VIEWS LEFT 2024-06-30 00:23:41 Angela Melgar [facility] Plan of Care Planned Activity Planned Date Details Comments Source Instructions Cellulitis [facility] Encounters Start Date/Time End Date/Time Encounter Type Admission Type Attending Clinicians Care Facility Care Department Encounter ID Source 2023-04-07 13:28:02 Outpatient [facility] [id number] [facility] 2021-01-08 09:00:00 Inpatient [facility] [id number] [facility] 2024-09-15 03:31:00 2024-09-15 04:41:00 Emergency EM Bianca Pham [facility] [id number] [facility] 2024-07-11 16:18:26 2024-07-11 16:18:26 Outpatient [facility] [id number] Philip Laguerre 2024-06-29 23:53:00 2024-06-30 01:00:00 Emergency LONDON ACOSTA [facility] [id number] [facility] 2024-06-29 23:53:00 2024-06-29 23:59:00 Emergency Emergency [facility] Emergency Medicine [id number] [facility] 2024-06-29 23:53:00 2024-06-29 23:59:00 Emergency [facility] [id number] Randy kim [place] [facility] 2023-12-15 17:05:27 2023-12-15 17:05:27 Outpatient [facility] [id number] Philip Laguerre 2023-12-13 17:40:22 2023-12-13 17:40:22 Outpatient [facility] [id number] Philip Laguerre 2023-10-04 10:48:24 2023-10-04 10:48:24 Outpatient [facility] [id number] Philip Laguerre 2023-09-21 13:08:27 2023-09-21 13:08:27 Outpatient [facility] [id number] Philip Laguerre 2023-04-07 13:39:00 2023-07-28 12:20:[address] [facility] [id number] [facility] 2021-12-18 00:00:00 2021-12-18 00:00:00 Telephone Team, [facility] [id number] [facility] 2021-11-04 00:00:00 2021-11-04 00:00:00 Outpatient R RADIOLOGY [facility] [id number] [facility] 2021-10-27 00:00:00 2021-10-27 00:00:00 Outpatient R RADIOLOGY [facility] [id number] [facility] 2021-01-08 09:31:00 2021-01-08 10:47:00 Departed Emergency Room [facility] [id number] [address] [place] [address] 2020-12-17 11:33:00 2020-12-17 11:33:00 Emergency X MAXX PAUL [facility] ERT [id number] [facility] 2020-04-16 19:11:00 2020-04-17 02:09:00 Emergency E SUKHJINDER GARZA [facility] [id number] [facility] 2020-01-22 10:18:24 2020-01-22 11:03:00 Emergency Anita Benjamin [facility] [id number] 2020-01-22 10:18:24 2020-01-22 10:18:24 Emergency X ANITA BENJAMIN [facility] ERT [id number] [facility] 2007-12-01 00:00:00 2007-12-01 14:55:20 Outpatient [facility] [id number] [facility] Results Test Description Test Time Test Comments Results Result Co mments [facility] [place], [address], RADRPT 2024-06-30 05:28:29* Test Item Value Reference Range Interpretation Comme [facility] RADRPT (test code = RADRPT) PROCEDURE INFORMATION: Exam: XR Left Hand Exam date and time: 06/30/2024 12:15 AM Age: 63 years old Clinical indication: /trauma, 2nd mcp TECHNIQUE: Imaging protocol: XR left hand. Views: 3 or more views. Frontal Oblique Lateral COMPARISON: No relevant prior studies available. FINDINGS: Bones/joints: No acute fracture or dislocation. No advanced degenerative change. Soft tissues: No focal soft tissue swelling. No soft tissue gas or radiopaque foreign body. Notes: If there is continued concern, follow-up radiographs or MRI should be considered for more complete assessment. IMPRESSION: No fracture or dislocation. Chadwick Okeefe MD On 06/30/2024 00:27:57; [id number] [facility] [id number] 03:39:30* Test Item Value Reference Range Interpretation Comme [facility] HEMOGLOBIN A1c (test code = 88567) 6.6 % 4.2-5.[address] [employer] GUIDELINES FOR HGB A1C: PREDIABETES/INCREASED RISK . . . . . . . 5.7-6.4% DIAGNOSIS OF DIABETES . . . . . . . . . >=6.5% WITH CONFIRMATION OR APPROPRIATE SYMPTOMS NOTE: ASSAY MAY BE AFFECTED BY HEMOGLOBINOPATHIES (SICKLE CELL ANEMIA, S-C DISEASE, OTHERS) OR ARTIFICIALLY LOWERED BY DECREASED RED CELL SURVIVAL (HEMOLYTIC ANEMIAS, BLOOD LOSS, ETC.). CONSIDER ALTERNATE TESTING OR LABORATORY CONSULTATION. UNLESS OTHERWISE INDICATED, ALL TESTING PERFORMED [facility] [employer] [address] [place] [address] CHECK OUT CLERK: EUGENIO PEREZ M.D. CLIA NUMBER [id number] [facility] [place]. [id number] URINE AND [id number] 01:44:00* Test Item Value Reference Range Interpretation Comme nts UA Color (test code = UA Color) Shelbi *ABN*(04/16/20 8:44 PM) UA Turbidity (test code = UA Turbidity) Clear (04/16/20 8:44 PM) UA Spec Grav (test code = UA Spec Grav) 1.028 1 UA pH (test code = UA pH) 5.0 1 5.0-8.0 UA Protein (test code = UA Protein) 30 mg/dL UA Ketones (test code = UA Ketones) Trace mg/dL UA Bili (test code = UA Bili) Negative *NA*(04/16/20 8:44 PM) UA Blood (test code = UA Blood) Small *ABN*(04/16/20 8:44 PM) UA Urobilinogen (test code = UA Urobilinogen) 2.0 0.1-1.0 UA Nitrite (test code = UA Nitrite) Negative (04/16/20 8:44 PM) UA Leuk Est (test code = UA Leuk Est) Negative (04/16/20 8:44 PM) UA Sq Epi (test code = UA Sq Epi) Occasional /LPF UA WBC (test code = UA WBC) 1 <=5 UA RBC (test code = UA RBC) 2 <=2 UA Mucus (test code = UA Mucus) Few /LPF UA Hyal Cast (test code = UA Hyal Cast) 10 <=2 UA Trans Epi (test code = UA Trans Epi) 1 UA Glucose (test code = UA Glucose) 150 [facility] [id number] 05:51:00* Test Item Value Reference Range Interpretation Comme nts UA Sq Epi (test code = UA Sq Epi) Occasional /LPF UA Leuk Est (test code = UA Leuk Est) Negative (12/24/18 11:51 PM) UA WBC (test code = UA WBC) 1 <=5 UA Bacteria (test code = UA Bacteria) Occasional /HPF UA RBC (test code = UA RBC) 2 <=2 UA Mucus (test code = UA Mucus) Few /LPF UA Protein (test code = UA Protein) Negative (12/24/18 11:51 PM) UA Glucose (test code = UA Glucose) Negative *NA*(12/24/18 11:51 PM) UA pH (test code = UA pH) 5.0 1 5.0-8.0 UA Spec Grav (test code = UA Spec Grav) 1.011 1 UA Ketones (test code = UA Ketones) 20 mg/dL UA Urobilinogen (test code = UA Urobilinogen) <=1.0 mg/dL 0.1-1.0 UA Blood (test code = UA Blood) Small *ABN*(12/24/18 11:51 PM) UA Bili (test code = UA Bili) Negative *NA*(12/24/18 11:51 PM) UA Nitrite (test code = UA Nitrite) Negative (12/24/18 11:51 PM) UA Turbidity (test code = UA Turbidity) Clear (12/24/18 11:51 PM) UA Color (test code = UA Color) Yellow *NA*(12/24/18 11:51 PM) [facility] [id number] 02:38:00* Test Item Value Reference Range Interpretation Comme nts Lipase Lvl (test code = Lipase Lvl) 128 73-393 B/C Ratio (test code = B/C Ratio) 13 1 6-25 AGAP (test code = AGAP) 12.4 10.0-20.0 A/G Ratio (test code = A/G Ratio) 0.9 1 0.7-1.6 Globulin (test code = Globulin) 4.5 2.7-4.2 eGFR (test code = eGFR) 59 Total Protein (test code = T otal Protein) 8.4 6.4-8.4 Calcium Lvl (test code = Calcium Lvl) 9.0 8.5-10.5 Potassium Lvl (test code = P otassium Lvl) 4.4 3.5-5.1 Sodium Lvl (test code = Sodium Lvl) 135 135-145 CO2 (test code = CO2) 25 24-32 Chloride Lvl (test code = Chloride Lvl) 102 95-109 Albumin Lvl (test code = Albumin Lvl) 3.9 3.5-5.0 Alk Phos (test code = Alk Phos) 113 39-136 AST (test code = AST) 37 <=37 ALT (test code = ALT) 29 <=65 Bili Total (test code = Bili Total) 1.0 0.2-1.3 Creatinine Lvl (test code = Creatinine Lvl) 1.04 0.50-1.40 BUN (test code = BUN) 14 7-22 Glucose Lvl (test code = Glucose Lvl) 86 70-99 [id number] 02:38:00* Test Item Value Reference Range Interpretation Comme nts MPV (test code = MPV) 8.8 7.4-10.4 Platelet (test code = Platelet) 217 133-450 RDW (test code = RDW) 12.6 11.5-14.5 MCV (test code = MCV) 92.9 80.0-98.0 Hct (test code = Hct) 49.0 36.0-48.0 MCHC (test code = MCHC) 35.3 32.0-36.0 MCH (test code = MCH) 32.8 pg 27.0-31.0 Hgb (test code = Hgb) 17.3 12.0-16.0 RBC (test code = RBC) 5.27 4.20-5.40 WBC (test code = WBC) 18.7 3.7-10.4 Eosinophils # (test code = Eosinophils #) 0.1 <=0.5 Basophils # (test code = Basophils #) 0.1 <=0.2 Monocytes # (test code = Monocytes #) 1.4 <=0.8 Basophils (test code = Basophils) 0.5 <=1.0 Lymphocytes # (test code = Lymphocytes #) 1.3 1.0-5.5 Eosinophils (test code = Eosinophils) 0.4 <=4.0 Neutrophils # (test code = Neutrophils #) 15.8 1.5-8.1 Monocytes (test code = Monocytes) 7.6 2.0-12.0 Segs (test code = Segs) 84.6 45.0-75.0 Lymphocytes (test code = Lymphocytes) 6.9 20.0-40.0 [facility] [id number] 02:38:00* Test Item Value Reference Range Interpretation Comme nts Troponin-I (test code = Troponin-I) no gt <=0.40 [facility] Notes Date/Time Note Provider Source 2024-09-15 03:52:00 [facility] ([facility]) EMERGENCY PROVIDER REPORT REPORT#:[id number] REPORT STATUS: Signed DATE:09/15/24 TIME: 351 PATIENT: RACHANA CROSS UNIT #: [id number] ROOM/BED: : 58 AGE: 64 SEX:M PCP PHYS: Ramírez Hampton MD SERVICE AUTHOR: Bianca Pham DO REP SRV REP SRV TM: 0352 * ALL edits or amendments must be made on the electronic/computer document * HPI-Chest Pain 40 and Over General Initial Greet Date/Time 09/15/24 0343 Presentation Chief Complaint Chest pain Sudden in Onset? No )( Migration/Movement None Free Text HPI Notes Free Text HPI Notes Pt is a 4-year-old female who presents to the ED with CC of body aches, generalized maliase and cough ROS Free Text ROS Notes Constitutional: Patient denies recent illness fever injury Musculoskeletal: Patient denies neck or back pain and calf pain Pulm: Pt rep cough, den dyspnea Chest: Pt denies chest pain, palpitations Lymph: Patient denies palpable lymph nodes or ankle swelling GI: Patient denies abdominal pain, nausea, vomiting, diarrhea and black stools : Patient denies problems with urination Eyes: Patient denies problems with vision HEENT: Patient rep sore throat, den difficulty swallowing Skin: Patient denies rash, redness Endo: Patient denies recent weight change Neuro: Patient denies headache or syncope Psych: Denies SI and HI All other systems reviewed and negative PHYSICAL EXAM Free Text PE Notes General: Patient in no acute distress, appears stated age HEENT: Normocephalic, atraumatic, nares are patent bilaterally, pupils are equal round reactive to light and accommodation intact, mild pharyngeal erythema Neck: Trachea is midline, no JVD present, no subcutaneous emphysema Chest: Breath sounds are present in all jarrett, no wheezes rales or rhonchi, equal excursion normal respiratory effort Cardiovascular: Regular rate and rhythm with no rubs murmurs or gallops, Extremities: Normal range of movement active and passive, 2+ pulses in all extremities, no edema, normal color Neuro: Cranial nerves II through XII grossly intact, patient able to move all extremities, no focal neuro deficits Psych: normal mood and affect Back: No vertebral tenderness, no CVA tenderness Abdomen: Abdomen is soft non-tender non-distended, no pulsatile masses, no abdominal bruits, normal bowel sounds. Past Medical History - Adult Stated Complaint CHEST BACK AND NECK PAIN Allergies Coded Allergies: No Known Allergies (09/15/24) Calculated Suicide Risk (nurs) No risk Smoking status for patients 13 years old or older: Never Smoker Physical Exam Vital Signs Vital Signs First Documented: Result Date Time Pulse Ox 97 09/15 033 B/P 163/80 09/15 033 B/P Mean 107 09/15 033 O2 Delivery Room air 09/15 336 Temp 36.8 09/15 033 Pulse 70 09/15 033 Resp 18 09/15 0336 Last Documented: Result Date Time Pulse Ox 100 09/15 0440 B/P 153/85 09/15 0440 B/P Mean 107 09/15 0440 O2 Delivery Room air 09/15 0440 Pulse 71 09/15 0440 Resp 18 09/15 0440 Temp 36.8 09/15 0336 Review of Vital Signs Reviewed Interpretation Diagnostics Lab Results Interpretation Results Laboratory Tests: 09/15 09/15 09/15 0418 0401 0359 Blood Gas Sodium (134 - 147 mmol/L) 141 Potassium (3.4 - 5.0 mmol/L) 3.7 Chloride (100 - 108 mmol/L) 107 Ionized Calcium (1.12 - 1.32 MMOL/L) 1.13 Chemistry POC Creatinine (0.6 - 1.3 mg/dL) 0.7 POC Glucose (mg/dL) (70 - 110 MG/DL) 170 H POC Troponin I (<0.05 ng/mL) <0.05 Hematology POC WBC (3.5 - 11.0 10 3/uL) 8.0 POC RBC (4.14 - 5.52 10 6/uL) 4.98 POC Hgb (12.5 - 16.9 g/dL) 16.1 POC Hct (40.0 - 54.0 %) 45.7 POC MCV (83.2 - 96.0 fL) 91.8 POC MCH (27.1 - 32.5 pg) 32.3 POC MCHC (31.0 - 35.8 g/dL) 35.2 POC RDW Coeff of Jigna (12.0 - 15.0 %) 12.8 POC Platelet Count (155 - 330 10 3/uL) 255 POC MPV (8.7 - 12.6 fL) 10.3 POC Lymph # (0.9 - 3.0 k/mm3) 1.80 POC Lymphocytes % (16.8 - 42.5 %) 22.1 Re-Evaluation MDM ED Course Medication(s) Ordered Medication(s) Ordered: Central Nervous System Agents Sig/J Carlos Start time Last Medication Dose Route Stop Time Status Admin Ketorolac 30 MG X1ED STA 09/15 0350 DC Tromethamine IV 09/15 035 Aspirin 324 MG X1ED STA 09/15 0349 DC PO 09/15 035 Patient Discharge Departure Vital Signs/Condition Vital Signs First Documented: Result Date Time Pulse Ox 97 09/15 0336 B/P 163/80 09/15 0336 B/P Mean 107 09/15 0336 O2 Delivery Room air 09/15 033 Temp 36.8 09/15 033 Pulse 70 09/15 0336 Resp 18 09/15 0336 Last Documented: Result Date Time Pulse Ox 100 09/15 0440 B/P 153/85 09/15 0440 B/P Mean 107 09/15 0440 O2 Delivery Room air 09/15 0440 Pulse 71 09/15 0440 Resp 18 09/15 0440 Temp 36.8 09/15 0336 All vital signs available at the time of this entry have been reviewed. Clinical Impression Clinical Impression Primary Impression: Chest wall pain Disposition Decision Discharge )( Discharged to Home Yes )( Time 0440 )( Date 09/15/24 Discharge/Care Plan Counseled Regarding Diagnosis, Lab results, Imaging studies, Prescriptions, Need for follow-up, When to return to ED Prescriptions motrin 800 (Auto) Prescriptions Current Visit Scripts IBUPROFEN (MOTRIN) 600 MG PO TID PRN PRN Pain IBUPROFEN (MOTRIN) 600 MG PO TID PRN PRN Pain #15 TABS Patient Instructions ED Chest Pain, Uncertain Cause Departure Forms [facility] PCP LIST Discharge Note I have spoken with the patient and/or caregivers. I have explained the patient's condition, diagnoses and treatment plan based on the information available to me at this time. I have answered the patient's and/or caregiver's questions and addressed any concerns. The patient and/or caregivers have as good an understanding of the patient's diagnosis, condition and treatment plan as can be expected at this point. The vital signs have been stable. The patient's condition is stable and appropriate for discharge from the emergency department. The patient will pursue further outpatient evaluation with the primary care physician or other designated or consulting physician as outlined in the discharge instructions. The patient and/or caregivers are agreeable to this plan of care and follow-up instructions have been explained in detail. The patient and/or caregivers have received these instructions in written format and have expressed an understanding of the discharge instructions. The patient and/or caregivers are aware that any significant change in condition or worsening of symptoms should prompt an immediate return to this or the closest emergency department or a call to 911. at [phone] [facility] #:[id number] END OF REPORT [facility] 2024-06-30 00:34:20 [facility]2024-08-30 00:13:26* PROCEDURE INFORMATION: Exam: XR Left Hand Exam date and time: 06/30/2024 12:15 AM Age: 63 years old Clinical indication: /trauma, 2nd mcp TECHNIQUE: Imaging protocol: XR left hand. Views: 3 or more views. Frontal Oblique Lateral COMPARISON: No relevant prior studies available. FINDINGS: Bones/joints: No acute fracture or dislocation. No advanced degenerative change. Soft tissues: No focal soft tissue swelling. No soft tissue gas or radiopaque foreign body. Notes: If there is continued concern, follow-up radiographs or MRI should be considered for more complete assessment. IMPRESSION: No fracture or dislocation. Chadwick Okeefe MD On 06/30/2024 00:27:57; [id number] [id number] 23:22:00* Patient Name: RACHANA CROSS : [birth year]; Age: 58 years y/o Female MR: [id number] Study: Chest Pulmonary Embolism CTA 12/24/18 11:22 PM [employer] Ordering Physician: Desmond Michael MD Clinical Indication: - CHEST PAIN; Comparison: None TECHNIQUE: Sequential trans-axial images were obtained thru the chest and upper abdomen after administration of iodinated contrast. Coronal, sagittal and MIP reconstructions were obtained. 100 mL of Omnipaque intravenously were used for the exam. CT imaging performed at this location utilizes radiation dose optimization techniques which include one or more of the following: -Automated exposure control -Adjustment of the mA and/or kV according to patient size -Use of iterative reconstruction technique Dose: DLP = 875.25 mGy-cm FINDINGS: LUNG PARENCHYMA AND PLEURA: The lungs are notable for some apical mild emphysematous changes. There are no pleural effusions. There is no pneumothorax. AIRWAY: The central airway demonstrates no acute pathology. MEDIASTINUM: No significant mediastinal lymphadenopathy. HEART: Moderate coronary artery calcifications noted. There is no evidence of RV strain. The cardiac chambers are otherwise unremarkable. There is no pericardial effusion. VASCULAR STRUCTURES: There is adequate opacification of the pulmonary arteries. There are no filling defects appreciated to suggest PE. The great vessels are unremarkable. The thoracic aorta demonstrates no aneurysm or dissection. The superior vena cava is unremarkable. OSSEOUS STRUCTURES: There are no definite significant osseous abnormalities seen. VISUALIZED UPPER ABDOMEN: Included portions of the upper abdomen demonstrate no acute pathology. IMPRESSION: CAD. No PE or other acute pathology appreciated. SL: [id number]:00:00* Clinical Indication: Chest pain - chest pain. Comparison: None. TECHNIQUE: AP 1 view chest radiograph was performed. FINDINGS: The cardiac silhouette is normal in size. The pulmonary vasculature is normal in caliber. The aorta is unremarkable. There is no focal airspace consolidation, pleural effusion, or pneumothorax. There is no acute osseous abnormality. IMPRESSION: No definitive acute airspace disease. SL: JON [facility]
[2025-06-23 12:54] LABS: Absolute Lymphocytes (CBC) 1.1 K/uL (0.7-4.9); Hematocrit 45.6 % (39.6-49.0); Hemoglobin 15.7 g/dL (13.6-17.9); MCH 31.7 pg (27.0-35.0); MCHC 34.5 g/dL (32.0-36.0); MCV 91.8 fL (80-100); MPV 8.7 fL (7.6-11.3); Nucleated RBC Absolute Count 0.0 (0-0); Nucleated Red Blood Cells % 0.0 % (0-0); RBC Red Blood Cell Count 4.96 M/uL (4.33-5.43); White Blood Count 8.10 thou/uL (4.3-10.9)
[2025-06-23 13:06] LABS: Anion Gap 10.8 mEq/L (5.0-15.0); BUN Blood Urea Nitrogen 24.0 mg/dL (7-18); Glucose Level 160.0 mg/dL (74-106); Potassium 3.8 mEq/L (3.5-5.1)
--- NOTE | 2025-06-23 13:10 | RAD REPORT ---
EXAMINATION: Head C Spine Mpr Wo Con CLINICAL INDICATION: Male, 64 years old. jumped out of a window, head/neck/back pain TECHNIQUE: Axial CT images from the skull base to the vertex without intravenous contrast. Axial CT i mages through the cervical spine were obtained without intravenous contrast. Sagittal and coronal reformatted images were created from the data set. Coronal and sagittal reformatted images were creat ed from the data set. One or more of the following dose reduction techniques were used: Automated exposure control, adjustment of the mA and/or kV according to patient size, and/or iterative reconstr uction. Unless otherwise specified, incidental findings do not require dedicated imaging follow-up. [id number]. COMPARISON: 06/23/2025 FINDINGS: Head: INTRACRANIAL: No acute intracranial hemorrhage. No acute large vascular territory infarct. No hydroce phalus. No mass effect or midline shift. Mild chronic small vessel ischemic changes. VASCULATURE: No visualized abnormalities in the arteries or dural venous sinuses. SCALP/SKULL: No calvarial fracture identified. No acute soft tissue abnormality. SINUSES: The visualized paranasal sinuses are mostly clear. No significant mastoid fluid. Cervical spine: ALIGNMENT: The cervical spine has normal alignment without scoliosis or spondylolisthesis. BONE: Vertebral body heights are maintained. No aggressive osseous lesions. Presumably developmental fusion across the vertebral bodies and posterior elements on the left at C3-4. Remote C7 spinous process fracture. DEGENERATIVE: Multilevel cervical spondylosis with evidence of bilateral neural foraminal narrowing. No high grade central spinal stenosis. Neural foraminal narrowing is most advanced at C3-4, C5-6, and to lesser extent C6-7. SOFT TISSUE: No significant abnormalities in the soft tissue of the neck. The visualized lung apices are clear. IMPRESSION: No acute intracranial abnormality. No acute fracture or traumatic malalignment of the cervical spine.
--- NOTE | 2025-06-23 13:16 | RAD REPORT ---
EXAM: Chest Abd Pelvis Wo Con CLINICAL INDICATION: Male, 64 years old jumped out of window, head/neck/back pain TECHNIQUE: CT chest, abdomen and pelvis was performed, without IV contrast, as per department protoco l. Axial, sagittal and coronal reconstructions were obtained. One or more of the following dose reduction techniques were used: Automated exposure control, adjustment of the mA and/or kV according to the patient size, and/or iterative reconstruction. Unless otherwise specified, incidental findings do not require dedicated imaging follow-up. [id number]. COMPARISON: No prior exams FINDINGS: The lack of intravenous contrast limits the sensitivity of this exam for evaluation of solid visceral organs, vascular structures, and retroperitoneum. ---THORAX--- LOWER NECK AND CHEST WALL: Visualized thyroid gland and soft tissues are normal. MEDIASTINUM AND LYMPH NODES: No mediastinal mass or fluid collection. Normal size mediastinal, hilar, and axillary lymph nodes. THORACIC AORTA: No thoracic aortic aneurysm. PULMONARY ARTERIES: Caliber is within normal limits. Unable to assess for pulmonary emboli without IV contrast. HEART: Normal heart size. Moderate coronary artery calcifications.Trace pericardial effusion. LUNGS AND AIRWAYS: Moderate emphysema. No suspicious and/or stable pulmonary nodules. PLEURA: No pleural effusion. No pneumothorax. ---ABDOMEN/PELVIS--- UPPER GI: No significant abnormality. LIVER: Cirrhotic liver morphology. No focal masses. GALLBLADDER/BILE DUCTS: No biliary ductal dilatation.? PANCREAS: No mass, ductal dilation, or cary-pancreatic fluid. SPLEEN: Unremarkable. ADRENALS: No adrenal masses. KIDNEYS AND URETERS: No hydronephrosis.Limited evaluation for renal lesions in the absence of IV cont rast.No renal calculi.No ureteral calculi. ABDOMINAL AORTA AND OTHER VESSELS: Moderate atherosclerotic changes without aortic aneurysm. PERITONEUM: No abnormal free fluid. No free air. LYMPH NODES: No pathologic lymphadenopathy. ABDOMINAL WALL: Small fat containing umbilical hernia. SMALL BOWEL/COLON: Small bowel has normal course and caliber. No colonic wall thickening or pericolon ic inflammatory changes. Mild diverticulosis without diverticulitis. Moderate formed stool burden. URINARY BLADDER: Underdistended but grossly unremarkable. REPRODUCTIVE ORGANS: Moderate prostatomegaly. ---COMBINED--- MUSCULOSKELETAL: Chronic appearing compression deformity at T1 and T2. Age indeterminate but possibly acute compression fractures at T3 and T4 with less than 20% loss of height. No bony retropulsion. ADDITIONAL FINDINGS: None. IMPRESSION: Age-indeterminate T3 and T4 compression fractures with less than 20% loss of height. No other evidence of significant trauma identified. Incidental findings as noted above.
--- NOTE | 2025-06-23 13:36 | ER ---
Nurse's Notes [facility] Name: Padilla Maldonado Jr Age: 64 yrs Sex: Male : 1960 Arrival Date: 06/23/2025 Time: 12:20 Bed 14 Private MD: Diagnosis: Unspecified injury of head, initial encounter;Wedge compression fracture of unspecified thoracic vertebra;Cellulitis of left upper limb Presentation: 06/23 12:44 Chief complaint: EMS states: toned out due to patient having neck and back pain. pt cm10 also has wound to left forearm. Coronavirus screen: Client denies travel out of the [place] in the last 14 days. Ebola Screen: Patient denies travel to an Ebola-affected area in the 21 days before illness onset. Initial Sepsis Screen: Does the patient meet any 2 criteria? No. Patient's initial sepsis screen is negative. Does the patient have a suspected source of infection? No. Patient's initial sepsis screen is negative. Risk Assessment: Do you want to hurt yourself or someone else? Patient reports no desire to harm self or others. Onset of symptoms is unknown. 12:44 Method Of Arrival: EMS: [facility] cm10 12:44 Acuity: LONA 3 cm10 Triage Assessment: 12:46 General: Appears in no apparent distress. comfortable, Behavior is calm, cooperative. cm10 Pain: Complains of pain in head, neck and back Pain currently is 7 out of 10 on a pain scale. Neuro: No deficits noted. Level of Consciousness is awake, alert, obeys commands, Oriented to person, place, time, situation, Appropriate for age. Respiratory: No deficits noted. Airway is patent Respiratory effort is even, unlabored, Respiratory pattern is regular, symmetrical. Derm: Wound noted dorsal aspect of left forearm. Historical: - Allergies: 12:28 [place]; cm10 12:28 PENICILLINS; cm10 - PMHx: 12:28 brain injury; COPD; GERD; High Cholesterol; Hypertension; Osteoporosis; trigeminal cm10 nerve problem; - PSHx: 12:28 toenails removed; cm10 - Immunization history:: Adult Immunizations up to date. - Infectious Disease History:: Denies. - Social history:: Smoking status: unknown Patient uses street drugs, cocaine, Methamphetamine (Meth). - Family history:: not pertinent. - Hospitalizations: : No recent hospitalization is reported. Screenin:46 [facility] ED Fall Risk Assessment (Adult) History of falling in the last 3 months, cm10 including since admission No falls in past 3 months (0 pts) Confusion or Disorientation No (0 pts) Intoxicated or Sedated No (0 pts) Impaired Gait No (0 pts) Mobility Assist Device Used No (0 pt) Altered Elimination No (0 pt) Score/Fall Risk Level 0 - 2 = Low Risk Oriented to surroundings, Maintained a safe environment, Hourly rounding (assess needs \T\ fall precautionary measures) done. Abuse screen: Denies threats or abuse. Denies injuries from another. Nutritional screening: No deficits noted. Tuberculosis screening: No symptoms or risk factors identified. Assessment: 14:24 Reassessment: Patient appears in no apparent distress at this time. Patient and/or cm10 family updated on plan of care and expected duration. Pain level reassessed. Patient is alert, oriented x 3, equal unlabored respirations, skin warm/dry/pink. Vital Signs: 12:44 BP 125 / 75; Pulse 73; Resp 16; Temp 97.9(O); Pulse Ox 96% on R/A; Pain 7/10; cm10 13:50 BP 148 / 77; Pulse 67; Resp 16; Pulse Ox 93% ; cm10 12:44 Pain Scale: Adult cm10 ED Course: 12:25 Patient arrived in ED. cm10 12:25 Dallas Liz MD is Attending Physician. rn 12:27 Kary Tony, WES is Primary Nurse. cm10 12:45 Triage completed. cm10 12:45 Arm band placed on right wrist. Patient placed in an exam room, on a stretcher. cm10 12:45 Initial lab(s) drawn, by ia, sent to lab. Inserted saline lock: 20 gauge in right cm10 forearm, using aseptic technique. Blood collected. Flushed with 10 mL NS. 12:45 Basic Metabolic Panel Sent. cm10 12:45 CBC with Diff Sent. cm10 12:47 Patient has correct armband on for positive identification. Bed in low position. Call cm10 light in reach. Side rails up X2. 13:00 Chest Abd Pelvis Wo Con In Process Unspecified. EDMS 13:00 Head C Spine Mpr Wo Con In Process Unspecified. EDMS 14:24 Provided Education on: Follow-up instructions. cm10 14:24 No provider procedures requiring assistance completed. IV discontinued, intact, cm10 bleeding controlled, No redness/swelling at site. Pressure dressing applied. Administered Medications: No medications were administered Medication: 14:24 VIS not applicable for this client. cm10 Outcome: 13:35 Discharge ordered by . rn 14:24 Discharged to home ambulatory, cm10 14:24 Condition: good 14:24 Discharge instructions given to patient, Instructed on discharge instructions, follow up and referral plans. medication usage, Demonstrated understanding of instructions, follow-up care, medications, Prescriptions given X 2, 14:24 Patient left the ED. cm10 Signatures: Dispatcher [employer] EDDallas Garnett MD MD rn Martinez, Clarissa, RN RN cm10
--- NOTE | 2025-06-23 13:36 | EDPHYS ---
Physician Documentation [facility] Name: Padilla Maldonado Jr Age: 64 yrs Sex: Male : 1960 Arrival Date: 06/23/2025 Time: 12:20 Bed 14 Private MD: ED Physician Dallas Liz HPI: 06/23 12:42 This 64 yrs old Male presents to ER via Unassigned with complaints of Wound Check, Neck rn Pain, >24Hrs Old, Back Pain. 12:42 Patient reports jumped out of a window a few days ago, trailer window after smoking rn crack. Patient reports landed on head and since then has had headache along with neck and back pain. No rib pain. No other injuries to extremities.. Historical: - Allergies: 12:28 [place]; cm10 12:28 PENICILLINS; cm10 - PMHx: 12:28 brain injury; COPD; GERD; High Cholesterol; Hypertension; Osteoporosis; trigeminal cm10 nerve problem; - PSHx: 12:28 toenails removed; cm10 - Immunization history:: Adult Immunizations up to date. - Infectious Disease History:: Denies. - Social history:: Smoking status: unknown Patient uses street drugs, cocaine, Methamphetamine (Meth). - Family history:: not pertinent. - Hospitalizations: : No recent hospitalization is reported. ROS: 12:42 Constitutional: Negative for fever, chills, and weight loss, Neck: Positive for neck rn pain Cardiovascular: Negative for chest pain, palpitations, and edema, Respiratory: Negative for shortness of breath, cough, wheezing, and pleuritic chest pain, Abdomen/GI: Negative for abdominal pain, nausea, vomiting, diarrhea, and constipation, Back: Positive for back pain MS/Extremity: Negative for injury and deformity, Neuro: Positive for headache, negative for focal weakness or numbness Exam: 12:42 Constitutional: This is a well developed, well nourished patient who is awake, alert, rn and in no acute distress. Head/Face: Normocephalic, atraumatic. Eyes: Pupils equal round and reactive to light, extra-ocular motions intact. Neck: No midline cervical tenderness Chest/axilla: No chest tenderness or crepitus Cardiovascular: Regular rate and rhythm. No pulse deficits. Respiratory: Speaking full sentences, unlabored. Abdomen/GI: Soft, nontender Back: Perispinal tenderness thoracic to upper lumbar. MS/ Extremity: Pulses equal, no cyanosis. Neurovascular intact. Full, normal range of motion. Equal circumference. Small skin tear noted left dorsal forearm with surrounding erythema. Neuro: Awake and alert, GCS 15, oriented to person, place, time, and situation. Cranial nerves II-XII grossly intact. Motor strength 5/5 in all extremities. Sensory grossly intact. Cerebellar exam normal. Vital Signs: 12:44 BP 125 / 75; Pulse 73; Resp 16; Temp 97.9(O); Pulse Ox 96% on R/A; Pain 7/10; cm10 13:50 BP 148 / 77; Pulse 67; Resp 16; Pulse Ox 93% ; cm10 12:44 Pain Scale: Adult cm10 MDM: 12:25 Medical Screening Exam initiated rn 13:33 Differential diagnosis: cellulitis, Head injury, neck injury, back fracture, strain. rn Data reviewed: vital signs, nurses notes, lab test result(s), radiologic studies, CT scan, and as a result, I will. Independent interpretation of the following test(s) in the Emergency Department CT Scan: My interpretation is CT head images negative for acute hemorrhage per my interpretation. Counseling: I had a detailed discussion with the patient and/or guardian regarding the historical points, exam findings, and any diagnostic results supporting the discharge/admit diagnosis, lab results, radiology results, the need for outpatient follow up, to return to the emergency department if symptoms worsen or persist or if there are any questions or concerns that arise at home. 13:34 Test considered but Not performed: MRI: MRI not available over weekend. ED course: rn Possible subacute T3 and T4 mild compression fractures of spine due to fall. No other acute findings. Will discharge home with pain medication and return precautions. Will also add antibiotics for left wound that is a few days old with erythema and swelling.. 06/23 12:26 Order name: Basic Metabolic Panel; Complete Time: : rn 06/23 12:26 Order name: CBC with Diff; Complete Time: : rn 06/23 12:30 Order name: Chest Abd Pelvis Wo Con; Complete Time: 13: EDMS 06/23 12:31 Order name: Head C Spine Mpr Wo Con; Complete Time: EDWY 06/23 12:26 Order name: Labs collected and sent; Complete Time: 12:45 rn Administered Medications: No medications were administered Disposition Summary: 06/23/25 13:35 Discharge Ordered Notes: Location: Home rn Problem: new rn Symptoms: have improved rn Condition: Stable rn Diagnosis - Unspecified injury of head, initial encounter rn - Wedge compression fracture of unspecified thoracic vertebra rn - Cellulitis of left upper limb rn Followup: rn - With: Private Physician - When: As needed - Reason: Recheck today's complaints, Re-evaluation by your physician Discharge Instructions: - Discharge Summary Sheet rn - Spinal Compression Fracture rn - Cellulitis, Adult rn - Head Injury, Adult rn Forms: - Medication Reconciliation Form rn - Antibiotic furniture technician - Prescription Opioid Use rn - Patient Portal Instructions rn - Leadership Thank You Letter rn Prescriptions: - Tramadol 50 mg Oral Tablet - take 1 tablet ORAL route every 8 hours as needed; 12 tablet; Refills: 0, rn Product Selection Permitted - Bactrim DS 800-160 mg Oral Tablet - take 1 tablet ORAL route every 12 hours for 10 days; 20 tablet; Refills: 0, rn Product Selection Permitted Signatures: Dispatcher [employer] Dallas Hart MD MD rn Martinez, Clarissa, RN RN cm10 Corrections: (The following items were deleted from the chart) 12:29 12:26 Head C Spine Cap Wo Con+CT.RAD.BRZ ordered. EDWY EDMS
[2025-06-23 14:44] VITALS: TEMP 97.9
[2025-06-23 14:45] VITALS: BP 148/77; O2SAT 93
== END 2025-06-23 14:24 | disposition home or self-care (01) ==
LOC: ER 12:20
DX: S09.90XA Unspecified injury of head, initial encounter (principal); S22.030A Wedge compression fracture of third thoracic vertebra, initial encounter for closed fracture; S22.040A Wedge compression fracture of fourth thoracic vertebra, initial encounter for closed fracture; L03.114 Cellulitis of left upper limb
CPT/HCPCS: 36415; 70450; 71250; 72125; 74176; 80048; 85025; 99284

== ENCOUNTER 2025-06-28 08:52 | Emergency (ER) | payer OTHER ==
--- OUTSIDE RECORDS SUMMARY | 2025-06-28 08:55 | XMS REPORT | Continuity of Care Document ---
Author Name Unknown Address [address] [facility] [place] [address] [facility] [place] Address [address] 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 Semiautomatic Name Role Phone PCP, PATIENT DOES NOT HAVE A Primary Care Physic stephany Unavailable Bianca Pham Attending Clinician Unavailable LONDON MOE Attending Clinician OSEI Coto Attending Clinician Unavailable Osei Jc MD Attending Clinician [phone] NADIR BRIZUELA Attending Clinician Unavailab alem Team, [facility] Attending Clinicia n Unavailable RADIOLOGY Attending Clinician Unavailable PAUL LILLY Attending Clinician Unavailable SUKHJINDER OLSON Attending Clinician Un available Anita Kim Attending Clinician [phone] ANITA BENJAMIN Attending Clinician Unavailable Ramírez Hampton Admitting Clinician Unavailable NADIR BRIZUELA Admitting Clinician Unavailab ferrara Payers Payer Name Policy Type Policy Number Effective Date Expirati on Date Source [employer] [id number] 2023 00:00:00 Problems Condition Name Condition Details Condition Category Status Onset Date Resolution Date Last Treatment Date Treating Clinician Comments Source HAND SWELLING HAND SWELLING Active 06/29/2024 [facility] Active 8-29 00:00: 00 2024-06-30 01:43:00 Randy Leos BITES ALL OVER BITES ALL OVER Active 04/16/2020 [facility] Active 2019-0 6-16 00:00: 00 2020-04-16 22:26:00 Randy Leos CHEST PAIN CHEST PAIN Active 12/24/2018 [facility] Active 2- 00:00: 00 2019-01-26 20:23:00 Randy Leos No known active problems No known active problems Disease [facility] Cellulitis Problem Active [facility] History of Past Illness Condition Name Condition Details Condition Category Status Onset Date Resolution Date Last Treatment Date Treating Clinician Comments Source Erythema intertrigo Erythema intertrigo 04/17/2020 04/19/2020 [facility] Problem 2019-0 -17 17:00: 00 2020-04-19 21:04:53 2020-04-19 21:04:53 Randy Leos Viral infection, unspecifie d Viral infection, unspecifie d 12/25/2018 12/27/2018 [facility] Problem 2018- 2-24 06:00: 00 2018-12-27 22:35:37 2018-12-27 22:35:37 Randy Leos Allergies, Adverse Reactions, Alerts Allergy Name Allergy Type Status Severity Reaction(s) Onset Date Inactive Date Treating Clinician Comments Source No Known Allergie s DA Active U 2023-11 1 00:00: 00 [facility] Penicill in Propensi ty to adverse reaction s Active Rash 3 00:00: 00 [facility] PENICILL IN DRUG INGREDI Active Rash 3 00:00: 00 [facility] No Known Allergie s DA Active [facility] ALLERGIE S NOT ON FILE SYSTEMIC Active [facility] penicill in penicill in Active Randy Leos Social History Social Habit Start Date Stop Date Quantity Comments Source Gender identity 2024-01-23 07:43:15 Identifies as male gender (finding) Jorge Leos [facility] Sexual orientation [facility] Epic Sex Assigned At 1960 00:00:00 1960 00:00:00 [facility] Smoking Status Start Date Stop Date Source [...] No known medications 12-17 12:51: 33 No [facility] Triple Antibiotic topical ointment 04-17 05:38: [...] Name Observation Time Observation Value Comments S valorie Systolic (mm Hg) 2024-06-30 06:00:00 Jorge Leos Diastolic (mm Hg) 2024-06-30 06:00:00 Jorge Leos Heart Rate 2024-06-30 06:00:00 Catherine Leos Height 2024-06-30 04:54:00 5 [ft_i] Catherine Leos BMI Calculated 2024-06-30 04:54:00 [facility] Weight 2024-06-30 04:54:00 Catherine Leos Temperature Oral (F) 2024-06-30 04:54:00 98.3 F Jorge Leos Oxygen saturation by Pulse oximetry 2021-01-08 09:24:00 99 /min [facility] Weight 2021-01-08 09:24:00 169 [lb_av] [facility] BMI (Body Mass Index) 2021-01-08 09:24:00 27.3 kg/m2 [facility] Heart Rate 2020-04-17 07:05:00 [facility] Respitory Rate 2020-04-17 07:05:00 [facility] Systolic (mm Hg) 2020-04-17 07:05:00 [facility] Diastolic (mm Hg) 2020-04-17 07:05:00 [facility] Temperature Oral (F) 2020-04-17 07:05:00 98.2 F [facility] Weight 2020-04-17 00:35:00 [facility] Systolic (mm Hg) 2020-04-17 00:35:00 [facility] Diastolic (mm Hg) 2020-04-17 00:35:00 [facility] Heart Rate 2020-04-17 00:35:00 [facility] Respitory Rate 2020-04-17 00:35:00 [facility] Temperature Oral (F) 2020-04-17 00:35:00 97.6 F [facility] Temperature Oral (F) 2018-12-25 08:21:00 98 F [facility] Systolic (mm Hg) 2018-12-25 08:21:00 [facility] Diastolic (mm Hg) 2018-12-25 08:21:00 [facility] Respitory Rate 2018-12-25 08:21:00 [facility] Temperature Oral (F) 2018-12-25 07:46:00 98 F [facility] Respitory Rate 2018-12-25 07:46:00 [facility] Systolic (mm Hg) 2018-12-25 07:46:00 [facility] Diastolic (mm Hg) 2018-12-25 07:46:00 [facility] Respitory Rate 2018-12-25 06:42:00 [facility] Systolic (mm Hg) 2018-12-25 06:42:00 [facility] Diastolic (mm Hg) 2018-12-25 06:42:00 [facility] Temperature Oral (F) 2018-12-25 06:42:00 98 F [facility] Heart Rate 2018-12-25 01:00:00 [facility] BMI Calculated 2018-12-25 01:00:00 M cain Leos Height 2018-12-25 01:00:00 167.64 cm [facility] Weight 2018-12-25 01:00:00 [facility] Procedures Procedure Date / Time Performed Performing Clinicia n Source XR HAND 3+ VIEWS LEFT 2024-06-30 00:23:41 Angela Melgar [facility] Plan of Care Planned Activity Planned Date Details Comments Source Instructions Cellulitis [facility] Encounters Start Date/Time End Date/Time Encounter Type Admission Type Attending Clinicians Care Facility Care Department Encounter ID Source 2023-04-07 13:28:02 Outpatient [facility] [id number] [facility] 2021-01-08 09:00:00 Inpatient [facility] [id number] [facility] 2024-09-15 03:31:00 2024-09-15 04:41:00 Emergency EM Bianca Pham [facility] [id number] [facility] 2024-07-11 16:18:26 2024-07-11 16:18:26 Outpatient SFA SFA [id number] Philip Laguerre 2024-06-29 23:53:00 2024-06-30 01:00:00 Emergency LONDON ACOSTA [facility] [id number] [facility] 2024-06-29 23:53:00 2024-06-29 23:59:00 Emergency [facility] Medicine [id number] [facility] 2024-06-29 23:53:00 2024-06-29 23:59:00 Emergency [facility] [id number] Randy kim [facility] 2023-12-15 17:05:27 2023-12-15 17:05:27 Outpatient SFA SFA [id number] Philip Laguerre 2023-12-13 17:40:22 2023-12-13 17:40:22 Outpatient [facility] [id number] Philip Laguerre 2023-10-04 10:48:24 2023-10-04 10:48:24 Outpatient [facility] [id number] Philip Laguerre 2023-09-21 13:08:27 2023-09-21 13:08:27 Outpatient [facility] [id number] Philip Laguerre 2023-04-07 13:39:00 2023-07-28 12:20:00 Outpatient NADIR BRIZUELA [facility] [id number] [facility] 2021-12-18 00:00:00 2021-12-18 00:00:00 Telephone Team, [facility] [id number] [facility] 2021-11-04 00:00:00 2021-11-04 00:00:00 Outpatient R RADIOLOGY [facility] [id number] [facility] 2021-10-27 00:00:00 2021-10-27 00:00:00 Outpatient R RADIOLOGY [facility] [id number] [facility] 2021-01-08 09:31:00 2021-01-08 10:47:00 Departed Emergency Room [facility] [id number] [address] [place] [address] 2020-12-17 11:33:00 2020-12-17 11:33:00 Emergency X MAXX PAUL [facility] ERT [id number] [facility] 2020-04-16 19:11:00 2020-04-17 02:09:00 Emergency E SUKHJINDER GARZA [facility] [id number] [facility] 2020-01-22 10:18:24 2020-01-22 11:03:00 Emergency Anita Benjamin [facility] [id number] 2020-01-22 10:18:24 2020-01-22 10:18:24 Emergency X ANITA BENJAMIN [facility] ERT [id number] [facility] 2007-12-01 00:00:00 2007-12-01 14:55:20 Outpatient [facility] [id number] [facility] Results Test Description Test Time Test Comments Results Result Co mments Source [facility] [place], [address], RADRPT 2024-06-30 05:28:29* Test Item Value Reference Range Interpretation Comme nts RADRPT (test code = RADRPT) PROCEDURE INFORMATION: [...] dislocation. Chadwick Okeefe MD On 06/30/2024 00:27:57; [id number] [facility] [id number] 03:39:30* Test Item Value Reference Range Interpretation Comme [facility] HEMOGLOBIN A1c (test code = 67069) 6.6 % 4.2-5.6 H [employer] GUIDELINES FOR HGB A1C: [...] UNLESS OTHERWISE INDICATED, ALL TESTING PERFORMED ATCLINICAL PATHOLOGY [employer] [address] [place] [id number] CHILD AND FAMILY SERVICES WORKER: EUGENIO PEREZ M.D. CLIA NUMBER [id number] [facility] [place]. [id number] URINE AND [id number] 01:44:00* Test Item Value Reference Range Interpretation [...] = UA Glucose) 150 [facility] [id number] 05:51:00* Test Item Value Reference Range Interpretation [...] = UA Color) Yellow *NA*(12/24/18 11:51 PM) [facility]ARDI[facility] [id number] 02:38:00* Test Item Value Reference Range Interpretation Comme nts Troponin-I (test code = Troponin-I) no gt <=0.40 [facility] SupplyCHEM [id number] 02:38:00* Test Item Value Reference Range Interpretation [...] (test code = Glucose Lvl) 86 70-99 [id number] 02:38:00* Test Item Value Reference Range Interpretation [...] Lymphocytes (test code = Lymphocytes) 6.9 20.0-40.0 [facility] Notes Date/Time Note Provider Source 2024-09-15 03:52:00 [facility] ([facility]) EMERGENCY PROVIDER REPORT REPORT#:[id number] REPORT STATUS: Signed DATE:09/15/24 TIME: 035 PATIENT: RACHANA CROSS UNIT #: [id number] ROOM/BED: : 58 AGE: 64 SEX:M PCP [...] Ox 97 09/15 033 B/P 163/80 09/15 0336 B/P Mean 107 09/15 033 O2 Delivery Room air 09/15 336 Temp 36.8 09/15 336 Pulse 70 09/15 033 Resp 18 09/15 0336 Last Documented: Result Date Time Pulse Ox 100 09/15 0440 B/P 153/85 09/15 0440 B/P Mean 107 09/15 0440 O2 Delivery Room air 09/15 0440 Pulse 71 09/15 0440 Resp 18 09/15 0440 Temp 36.8 09/15 033 Review of Vital Signs Reviewed Interpretation Diagnostics [...] X1ED STA 09/15 0349 DC PO 09/15 0350 Patient Discharge Departure Vital Signs/Condition Vital Signs First Documented: Result Date Time Pulse Ox 97 09/15 0336 B/P 163/80 09/15 0336 B/P Mean 107 09/15 0336 O2 Delivery Room air 09/15 033 Temp 36.8 09/15 0336 Pulse 70 09/15 0336 Resp 18 09/15 [...] or a call to 911. at 0844 [facility] #:[id number] END OF REPORT [facility] 2024-06-30 00:34:20 [facility]2024-08-30 00:13:26* PROCEDURE INFORMATION: Exam: XR Left Hand [...] dislocation. Chadwick Okeefe MD On 06/30/2024 00:27:57; [id number] [id number] 23:22:00* Patient Name: RACHANA CROSS : [birth year]; Age: 58 years y/o Female MR: [id number] Study: Chest Pulmonary Embolism CTA 12/24/18 11:22 PM COREMAKER Ordering Physician: Desmond Michael MD Clinical Indication: [...] or other acute pathology appreciated. SL: KINA [id number] 19:00:00* Clinical Indication: Chest pain - chest pain. Comparison: None. TECHNIQUE: AP 1 view chest radiograph was performed. FINDINGS: The cardiac silhouette is normal in size. The pulmonary vasculature is normal in caliber. The aorta is unremarkable. There is no focal airspace consolidation, pleural effusion, or pneumothorax. There is no acute osseous abnormality. IMPRESSION: No definitive acute airspace disease. SL: JON [facility]
[2025-06-28] MEDS ORDERED: ASPIRIN 81 MG CHEWABLE TABLET ONE (09:28)
[2025-06-28] MEDS ORDERED: ONDANSETRON 4 MG/2 ML VIAL ONE (09:28)
[2025-06-28] MEDS ORDERED: LIDOCAINE VISCOUS 2% 10ML ORAL SOLN ONE (09:29)
[2025-06-28] MEDS ORDERED: MAGNES/ALUMIN/SIMET 30ML UCUP ONE (09:29)
[2025-06-28] MEDS ORDERED: MORPHINE 4 MG/ML SYR ONE (09:29)
[2025-06-28 09:33] LABS: Absolute Lymphocytes (CBC) 1.3 K/uL (0.7-4.9); Hematocrit 46.3 % (39.6-49.0); Hemoglobin 16.0 g/dL (13.6-17.9); MCH 31.7 pg (27.0-35.0); MCHC 34.6 g/dL (32.0-36.0); MCV 91.5 fL (80-100); MPV 8.2 fL (7.6-11.3); Nucleated RBC Absolute Count 0.0 (0-0); Nucleated Red Blood Cells % 0.1 % (0-0); RBC Red Blood Cell Count 5.06 M/uL (4.33-5.43); White Blood Count 7.30 thou/uL (4.3-10.9)
--- NOTE | 2025-06-28 10:11 | RAD REPORT ---
EXAMINATION: ONE VIEW CHEST XR CLINICAL INDICATION: Male, 64 years old.,CHEST PAIN TECHNIQUE: Frontal chest projection is submitted. Examination is limited by patient positioning and t echnique. COMPARISON: 11/04/2020 FINDINGS: The lungs are well inflated and clear. No pneumothorax or sizable effusion. The heart is normal in s ize. Mediastinal contours are unremarkable. IMPRESSION: No acute intrathoracic abnormalities.
[2025-06-28 10:14] LABS: Albumin 3.3 g/dL (3.4-5.0); Albumin/Globulin Ratio 0.9 (1.1-1.8); Alkaline Phosphatase 111 U/L (45-117); Anion Gap 8.3 mEq/L (5.0-15.0); BUN Blood Urea Nitrogen 14 mg/dL (7-18); Globulin 3.7 g/dL (2.3-3.5); Glucose Level 139 mg/dL (74-106); Potassium 4.3 mEq/L (3.5-5.1); Troponin High Sensitivity 3.7 pg/mL (<58.9)
[2025-06-28 10:21] LABS: ALT/SGPT 29 U/L (16-61)
[2025-06-28 10:25] LABS: AST/SGOT < 10 U/L (15-37)
--- NOTE | 2025-06-28 11:19 | EDPHYS ---
Physician Documentation [facility] Name: Padilla Maldonado Jr Age: 64 yrs Sex: Male : 1960 Arrival Date: 06/28/2025 Time: 08:52 Bed 16 Private MD: ED Physician Garcia Mays HPI: 06/28 08:59 This 64 yrs old Male presents to ER via EMS with complaints of Chest Pain. dr5 08:59 Onset: The symptoms/episode began/occurred yesterday. 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 Patient reports that the pain is intermittent and describes that chest pressure as something sitting on his chest. Patient reports smoking 1 pack a day of cigarettes. Patient denies taking anything prior to arrival. When asked patient if he has any daily medicines he reports taking only tramadol for pain.. Historical: - Allergies: 08:54 Cody; hb 08:54 PENICILLINS; hb - Home Meds: 08:56 None [Active]; hb - PMHx: 08:54 brain injury; COPD; GERD; High Cholesterol; Hypertension; Osteoporosis; trigeminal hb nerve problem; - PSHx: 08:54 toenails removed; hb - Immunization history:: Adult Immunizations unknown. - Infectious Disease History:: Denies. - Social history:: Smoking status: Patient reports the use of cigarette tobacco products, smokes one pack cigarettes per day. ROS: 09:00 Constitutional: as per hpi dr5 Exam: 09:00 Constitutional: This is a well developed, well nourished patient who is awake, alert, dr5 and in no acute distress. Head/Face: Normocephalic, atraumatic. Eyes: Pupils equal round and reactive to light, extra-ocular motions intact. Lids and lashes normal. Conjunctiva and sclera are non-icteric and not injected. Cornea within normal limits. Periorbital areas with no swelling, redness, or edema. ENT: Nares patent. No nasal discharge, no septal abnormalities noted. Tympanic membranes are normal and external auditory canals are clear. Oropharynx with no redness, swelling, or masses, exudates, or evidence of obstruction, uvula midline. Mucous membranes moist. Neck: Trachea midline, no thyromegaly or masses palpated, and no cervical lymphadenopathy. Supple, full range of motion without nuchal rigidity, or vertebral point tenderness. No Meningismus. 09:00 Respiratory: Lungs have equal breath sounds bilaterally, clear to auscultation. No rales, rhonchi or wheezes noted. No increased work of breathing, no retractions or nasal flaring. Abdomen/GI: Soft, non-tender, non-distended Skin: Warm, dry with normal turgor. Normal color with no rashes, no lesions, and no evidence of cellulitis. MS/ Extremity: Pulses equal, no cyanosis. Neurovascular intact. Full, normal range of motion. Neuro: Awake and alert, GCS 15, oriented to person, place, time, and situation. Cranial nerves II-XII grossly intact. Motor strength 5/5 in all extremities. Sensory grossly intact. Cerebellar exam normal. Normal gait. 09:00 Chest/axilla: Inspection: normal, no acute changes, Palpation: is normal, no acute changes, Axilla: are normal, 09:00 Cardiovascular: Rate: normal, Rhythm: regular, Pulses: Pulses are 2+ in right radial artery. Heart sounds: normal, Edema: is not appreciated, 09:12 ECG was reviewed by the Attending Physician. dr5 Vital Signs: 08:52 BP 126 / 70; Pulse 60; Resp 15; Temp 97.3; Pulse Ox 93% on R/A; Pain 8/10; hb 10:46 BP 113 / 72; Pulse 62; Resp 16 S; Pulse Ox 91% on R/A; aa5 12:00 BP 109 / 71; Pulse 61; Resp 16 S; Pulse Ox 96% on R/A; aa5 08:52 Pain Scale: Adult hb MDM: 08:53 Medical Screening Exam initiated dr5 11:23 Differential diagnosis: viral Infection, GERD, STEMI, NSTEMI, pneumonia, bronchitis, dr5 COPD exacerbation, anemia. Data reviewed: vital signs, nurses notes, lab test result(s), cardiac enzymes, troponin i, CBC, white blood cell count, hemoglobin, hematocrit, platelets, electrolytes, sodium, potassium, chloride, serum bicarbonate, BUN, creatinine, serum glucose, EKG, radiologic studies, plain films. Consideration of Admission/Observation Escalation of care including admission/observation considered. Escalation considered if patient found to have elevated troponin or chest pain did not resolve with medication. I considered the following discharge prescriptions or medication management in the emergency department I discussed and recommended Over The Counter medications, Medications were administered in the Emergency Department. See MAR. Independent interpretation of the following test(s) in the Emergency Department X-Ray: My interpretation is Interpretation of x-ray did not reveal pneumonia. Care significantly affected by the following chronic conditions: Hypertension, GERD, osteoporosis, hyperlipidemia. Care significantly affected by the following Social Determinants of Health: Poor access to healthcare and/or lack of insurance, Poor access to transportation, Problems related to employment. Counseling: I had a detailed discussion with the patient and/or guardian regarding the historical points, exam findings, and any diagnostic results supporting the discharge/admit diagnosis, the presence of at least one elevated blood pressure reading (>120/80) during this emergency department visit, lab results, radiology results, the need for outpatient follow up, for definitive care, a family practitioner, to return to the emergency department if symptoms worsen or persist or if there are any questions or concerns that arise at home. Medication response: GI Cocktail relieved the patient's pain. The symptoms have resolved. Response to treatment: the patient's symptoms have resolved after treatment, the patient's condition has returned to base line, the patient is now symptom free. Special discussion: Based on the patient's history, exam, and Dx evaluation, there is no indication for emergent intervention or inpatient Tx. It is understood by the patient/guardian that if the Sx's persist or worsen they need to return immediately for re-evaluation. I discussed with the patient/guardian in detail that at this point there is no indication for admission to the hospital. It is understood, however, that if the symptoms persist or worsen the patient needs to return immediately for re-evaluation. Based on the history and exam findings, there is no indication for further emergent testing or inpatient evaluation. I discussed with the patient/guardian the need to see the carpenter inspector for further evaluation of the symptoms. ED course: Recommended patient follow-up with GI doctor. Patient reports that he does not have his albuterol inhaler as someone stole it. Will cover with azithromycin for possible COPD infection. Recommended patient diet and exercise. Recommend patient follow with primary care doctor as well as follow-up GI doctor. All question answered. Strict ER precautions given. 06/28 08:58 Order name: CBC with Diff; Complete Time: 09:37 dr5 06/28 08:58 Order name: Troponin HS; Complete Time: : [facility] 06/28 08:58 Order name: CMP; Complete Time: [facility] 06/28 08:58 Order name: XRAY Chest (1 view); Complete Time: 10:17 [facility] 06/28 08:58 Order name: Cardiac monitoring; Complete Time: : [facility] 06/28 08:58 Order name: EKG - Nurse/Tech; Complete Time: [facility] 06/28 08:58 Order name: IV Saline Lock; Complete Time: : [facility] 06/28 08:58 Order name: Labs collected and sent; Complete Time: : [facility] 06/28 08:58 Order name: O2 Per Protocol; Complete Time: [facility] 06/28 08:58 Order name: O2 Sat Monitoring; Complete Time: dr5 EC:12 Rate is 60 beats/min. Rhythm is regular. QRS [place] is Normal. SC interval is normal at dr5 128 msec. QRS interval is normal at 96 msec. QT interval is normal at 422 msec. Clinical impression: Normal ECG and No evidence of ischemia. Administered Medications: 09:44 Drug: Aspirin PO Chewable Tablet 324 mg PO once; 81 mg tablets x 4 Route: PO; aa5 10:15 Follow up: Response: No adverse reaction aa5 09:44 Not Given (Patient Refused): morphineor iv 4 mg IVP once over 4 mins aa5 09:44 Not Given (Patient Refused): ondansetron 4 mg IVP once; over 2 minutes aa5 09:44 Drug: GI Cocktail without - (Maalox PO 30 ml, Lidocaine Mucous Membrane 2 % 15 aa5 ml) PO once Route: PO; 10:15 Follow up: Response: No adverse reaction aa5 Disposition Summary: 06/28/25 11:18 Discharge Ordered Notes: Location: Home dr5 Condition: Stable dr5 Diagnosis - Gastro-esophageal reflux disease without esophagitis dr5 Followup: dr5 - With: Emergency Department - When: As needed - Reason: Worsening of condition Followup: dr5 - With: Private Physician - When: 1 - 2 days - Reason: Recheck today's complaints, Continuance of care, Re-evaluation by your physician Discharge Instructions: - Discharge Summary Sheet dr5 - Gastroesophageal Reflux Disease, Adult dr5 Forms: - Medication Reconciliation Form dr5 - Antibiotic Education dr5 - Patient Portal Instructions dr5 - Leadership Thank You Letter dr5 Prescriptions: - albuterol sulfate 90 mcg/actuation Inhalation HFA Aerosol Inhaler - inhale 1 puff INHALATION route 4 times per day As needed; 1 application; dr5 Refills: 0, Product Selection Permitted - Zithromax Z-Scott 250 mg Oral Tablet - take 1 tablet ORAL route as directed for 5 days Day 1 - take two (2) tablets dr5 one time. Day 2, 3, 4 , 5 take one (1) tablet once daily.; 6 tablet; Refills: 0, Product Selection Permitted - Pepcid 20 mg Oral Tablet - take 1 tablet ORAL route once daily for 10 days; 10 tablet; Refills: 0, Product dr5 Selection Permitted Addendum: 06/29/2025 13:30 Co-signature as Attending Physician, Garcia Mays MD I agree with the assessment and c quispe plan of care. Signatures: Dispatcher [employer] Garcia Sierra MD MD cha Calderon, Audri, RN RN aa5 Rupal Marie RN RN Davin Camp, EDITOR MANAGING DIRECTOR-C EDITOR MANAGING DIRECTOR-Cdr5 Corrections: (The following items were deleted from the chart) 06/28 09:26 09:12 Rate is 60 beats/min. Rhythm is regular. QRS [place] is Normal. SC interval is dr5 normal at 128 msec. QRS interval is normal at 96 msec. QT interval is normal at 422 msec. Clinical impression: Normal ECG and No evidence of ischemia. dr5
--- NOTE | 2025-06-28 11:19 | ER ---
Nurse's Notes [facility] Name: Padilla Maldonado Jr Age: 64 yrs Sex: Male : 1960 Arrival Date: 06/28/2025 Time: 08:52 Bed 16 Private MD: Diagnosis: Gastro-esophageal reflux disease without esophagitis Presentation: 06/28 08:52 Chief complaint: EMS states: Midsternal chest pain and mild SOB since last night. hb Coronavirus screen: At this time, the client does not indicate any symptoms associated with coronavirus-19. Ebola Screen: No symptoms or risks identified at this time. Initial Sepsis Screen: Does the patient meet any 2 criteria? No. Patient's initial sepsis screen is negative. Does the patient have a suspected source of infection? No. Patient's initial sepsis screen is negative. Risk Assessment: Do you want to hurt yourself or someone else? Patient reports no desire to harm self or others. Onset of symptoms was June 27, 2025. 08:52 Method Of Arrival: EMS: [facility] 08:52 Acuity: LONA 2 hb Historical: - Allergies: 08:54 [place]; hb 08:54 [place]; hb - Home Meds: 08:56 None [Active]; hb - PMHx: 08:54 brain injury; COPD; GERD; High Cholesterol; Hypertension; Osteoporosis; trigeminal hb nerve problem; - PSHx: 08:54 toenails removed; hb - Immunization history:: Adult Immunizations unknown. - Infectious Disease History:: Denies. - Social history:: Smoking status: Patient reports the use of cigarette tobacco products, smokes one pack cigarettes per day. Screenin:00 [facility] ED Fall Risk Assessment (Adult) History of falling in the last 3 months, aa5 including since admission No falls in past 3 months (0 pts) Confusion or Disorientation No (0 pts) Intoxicated or Sedated No (0 pts) Impaired Gait No (0 pts) Mobility Assist Device Used No (0 pt) Altered Elimination No (0 pt) Score/Fall Risk Level 0 - 2 = Low Risk Oriented to surroundings, Maintained a safe environment, Educated pt \T\ family on fall prevention, incl call for assistance when getting out of bed, Assessed \T\ reinforced patient's understanding of fall precautions. Abuse screen: Denies threats or abuse. Nutritional screening: No deficits noted. Tuberculosis screening: No symptoms or risk factors identified. Assessment: 09:00 General: Appears uncomfortable, Behavior is calm, cooperative. Pain: Complains of pain aa5 in mid-sternal area Pain does not radiate. Pain currently is 3 out of 10 on a pain scale. Quality of pain is described as aching, Pain began 1 day ago. Is continuous. Neuro: Level of Consciousness is awake, alert, obeys commands, Oriented to person, place, time, situation. Cardiovascular: Reports chest pain, Heart tones S1 S2 present Rhythm is sinus rhythm. Respiratory: Airway is patent Respiratory effort is even, unlabored, Respiratory pattern is regular, symmetrical. GI: No signs and/or symptoms were reported involving the gastrointestinal system. : No signs and/or symptoms were reported regarding the genitourinary system. EENT: No signs and/or symptoms were reported regarding the EENT system. Derm: Skin is pink, warm \T\ dry. Musculoskeletal: Range of motion: intact in all extremities. 09:43 Reassessment: Pt sleeping, easy to awaken to verbal stimuli. . aa5 10:47 Reassessment: Pt sleeping, equal and relaxed respirations. . aa5 12:25 Reassessment: Patient is alert, oriented x 3, equal unlabored respirations, skin aa5 warm/dry/pink. Patient denies pain at this time. Patient states feeling better. Vital Signs: 08:52 BP 126 / 70; Pulse 60; Resp 15; Temp 97.3; Pulse Ox 93% on R/A; Pain 8/10; hb 10:46 BP 113 / 72; Pulse 62; Resp 16 S; Pulse Ox 91% on R/A; aa5 12:00 BP 109 / 71; Pulse 61; Resp 16 S; Pulse Ox 96% on R/A; aa5 08:52 Pain Scale: Adult hb ED Course: 08:52 Patient arrived in ED. hb 08:53 Davin Camp FNP-C [facility]. dr5 08:53 Garcia Mays MD is Attending Physician. dr5 08:53 Triage completed. hb 08:54 Alka Manning, RN is Primary Nurse. aa5 08:54 Arm band placed on. hb 09:00 Patient has correct armband on for positive identification. Bed in low position. Call aa5 light in reach. Side rails up X2. Client placed on continuous cardiac and pulse oximetry monitoring. NIBP monitoring applied. conveyor monitor on. Pulse ox on. NIBP on. 09:10 EKG done, by ED staff, reviewed by Davin APPIAH. aa5 09:19 Inserted saline lock: 20 gauge in left forearm, using aseptic technique. Blood aa5 collected. Flushed with 10 mL NS. 09:26 Alka Manning, RN is Primary Nurse. aa5 10:08 XRAY Chest (1 view) In Process Unspecified. EDMS 10:14 Patient maintains SpO2 saturation greater than 95% on room air. aa5 10:14 No provider procedures requiring assistance completed. aa5 12:25 IV discontinued, intact, bleeding controlled, No redness/swelling at site. Pressure aa5 dressing applied. Administered Medications: 09:44 Drug: Aspirin PO Chewable Tablet 324 mg PO once; 81 mg tablets x 4 Route: PO; aa5 10:15 Follow up: Response: No adverse reaction aa5 09:44 Not Given (Patient Refused): morphineor iv 4 mg IVP once over 4 mins aa5 09:44 Not Given (Patient Refused): ondansetron 4 mg IVP once; over 2 minutes aa5 09:44 Drug: GI Cocktail without - (Maalox PO 30 ml, Lidocaine Mucous Membrane 2 % 15 aa5 ml) PO once Route: PO; 10:15 Follow up: Response: No adverse reaction aa5 Medication: 10:12 VIS not applicable for this client. aa5 Outcome: 11:18 Discharge ordered by . janice 12:25 Discharged to home via wheelchair, aa5 12:25 Condition: stable 12:25 Discharge instructions given to patient, Instructed on discharge instructions, follow up and referral plans. medication usage, Demonstrated understanding of instructions, follow-up care, medications, Prescriptions given X 3, 12:31 Patient left the ED. aa5 Signatures: Dispatcher [employer] EDAL Alka Manning RN RN aa5 Rupal Marie RN RN hb Rhodes, Dustin, BIJAL ROLL UP HELPER-Cdr5 Corrections: (The following items were deleted from the chart) 08:54 08:52 Acuity: LONA 3 hb hb 12:35 12:34 Reassessment: Patient is alert, oriented x 3, equal unlabored respirations, skin aa5 warm/dry/pink. aa5
[2025-06-28 19:49] VITALS: TEMP 97.3
[2025-06-28 19:50] VITALS: BP 113/72; O2SAT 91
== END 2025-06-28 12:31 | disposition home or self-care (01) ==
LOC: ER 08:52
DX: K21.9 Gastro-esophageal reflux disease without esophagitis (principal); I10 Essential (primary) hypertension; J44.9 Chronic obstructive pulmonary disease, unspecified; F17.210 Nicotine dependence, cigarettes, uncomplicated
CPT/HCPCS: 36415; 71045; 80053; 84484; 85025; 93005; 99285; J2405